=== PATIENT | male | born 1945 | race Caucasian/White ===

== ENCOUNTER 2016-05-26 14:07 | Inpatient (IN) | payer MEDICARE, BC ==
[~2016-05-26] VITALS: Ht 190.5 cm; Wt 84.9 kg
[~2016-05-26 14:07] MED LIST: LACTATED RINGER'S 1000 ML INJ 1,000 ML IV ONE; ONDANSETRON HCL 4 MG/2 ML VIAL IV PUSH ONE; OXYC-360 PO; PROPOFOL 200 MG/20 ML AMP IV ONE; SODIUM CHLOR 0.9% 1000 ML INJ 1,000 ML IV ONE; SODIUM CHLOR 0.9% 250 ML INJ 250 ML IV ONE; Z.0.NO CURRENT MEDS
[2016-05-26 14:08] VITALS: BP 174/97; PULSE 74; RESP 18; TEMP 98.1; O2SAT 97
--- NOTE | 2016-05-26 15:45 | PD ---
HPI Chief Complaint: GI Complaint Time Seen by Provider: 15:40 Travel History International Travel<30 days: No Contact w/Intl Traveler<30days: No Traveled to known affect area: No History of Present Illness HPI Patient is a 71-year-old male presenting to emergency room for evaluation of 3 days of nausea and vomiting. Patient states his symptoms started Thursday night, he was at a restaurant with his had not yet been served their food when he started to have abdominal pain and then felt nauseated. Patient was unable to eat his dinner, he went to the car to wait for his while she paid until. He states that he thought he got into the passenger side door when he woke up in the bushes. When he woke he had numbness in his left hand but denies any weakness. He states the nausea and vomiting/dry heaves continued through Thursday. He states he tried to eat croissants and pizza on Thursday but he vomited that up. The symptoms continued through Thursday. He has been sipping water and amor maryellen. He has had nothing to eat or drink today. He reports currently that he feels bloated like something needs to "move", whether it be gas, or burping, or bowel movement. He denies any fever, chills, chest pain, shortness of breath, headache now or when the symptoms started. Patient denies a significant past medical history, he is only on when necessary medication for acid reflux. PFSH Past Medical History GERD: Yes Past Surgical History Other Surgery: Yes (wrist) Social History Alcohol Use: No Tobacco Use: No Substance Use: No Allergies-Medications (Allergen,Severity, Reaction): Coded Allergies: Ciprofloxacin/Hydrocortisone (Verified Allergy, Severe, Nausea/Vomiting, ) Clindamycin (Verified Allergy, Severe, Anaphylaxis, 05/26/16) Penicillin (Verified Allergy, Severe, Rash, 05/26/16) Reported Meds & Prescriptions Reported Meds & Active Scripts Active Reported Omeprazole 20 Mg Cap 20 Mg PO DAILY PRN Review of Systems Except as stated in HPI: all other systems reviewed are Neg General / Constitutional: No: Fever, Chills HENT: No: Lightheadedness Cardiovascular: No: Chest Pain or Discomfort Respiratory: No: Shortness of Breath Gastrointestinal: Positive: Nausea, Vomiting, Abdominal Pain, Changes in Bowel Habits Genitourinary: No: Dysuria Musculoskeletal: No: Myalgias Neurologic: Positive: Syncope Physical Exam Narrative GENERAL: Well-developed, well-nourished, alert male. Resting comfortably in no acute distress. SKIN: Warm and dry. HEAD: Atraumatic. Normocephalic. EYES: Pupils equal and round. No scleral icterus. No injection or drainage. ENT: No nasal bleeding or discharge. Mucous membranes pink and moist. NECK: Trachea midline. No JVD. CARDIOVASCULAR: Regular rate and rhythm. No murmur appreciated. RESPIRATORY: No accessory muscle use. Clear to auscultation. Breath sounds equal bilaterally. GASTROINTESTINAL: Abdomen soft, mild tender to palpation epigastric region., nondistended. Hepatic and splenic margins not palpable. Positive bowel sounds. MUSCULOSKELETAL: No obvious deformities. No clubbing. No cyanosis. No edema. NEUROLOGICAL: Awake and alert. No obvious cranial nerve deficits. Motor grossly within normal limits. Normal speech. PSYCHIATRIC: Appropriate mood and affect; insight and judgment normal. Data Data Last Documented VS Vital Signs Date Time Temp Pulse Resp B/P Pulse Ox O2 Delivery O2 Flow Rate FiO2 05/26/16 20:00 69 16 193/92 100 05/26/16 19:40 Room Air 05/26/16 14:08 98.1 Orders Complete Blood Count With Diff (05/26/16 15:27) Comprehensive Metabolic Panel (05/26/16 15:27) Urinalysis - C+S If Indicated (05/26/16 15:27) Lipase (05/26/16 15:27) Abdomen, Kub Only (05/26/16 15:27) Lactic Acid (05/26/16 15:27) Electrocardiogram (05/26/16 ) Ct Abd/Pel W Iv Contrast(Rout) (05/26/16 18:31) Iv Access Insert/Monitor (05/26/16 18:42) Ecg Monitoring (05/26/16 18:42) Oximetry (05/26/16 18:42) Morphine Inj (Morphine Inj) (05/26/16 18:45) Ondansetron Inj (Zofran Inj) (05/26/16 18:45) Sodium Chlor 0.9% 1000 Ml Inj (Ns 1000 M (05/26/16 18:42) Ckmb (Isoenzyme) Profile (05/26/16 18:45) Troponin I (05/26/16 18:45) Electrocardiogram (05/26/16 18:50) Sodium Chlor 0.9% 1000 Ml Inj (Ns 1000 M (05/26/16 19:00) CKMB (05/26/16 14:40) CKMB% (05/26/16 14:40) Chest, Single Ap (05/26/16 19:48) Iohexol 350 Inj (Omnipaque 350 Inj) (05/26/16 20:08) Bupivacaine-Epi Pf 0.5% Inj (Sensorcaine (05/26/16 21:58) Admit Order (Ed Use Only) (05/26/16 21:59) Labs Laboratory Tests Test 05/26/16 14:40 White Blood Count 8.4 TH/MM3 Red Blood Count 5.01 MIL/MM3 Hemoglobin 14.6 GM/DL Hematocrit 43.3 % Mean Corpuscular Volume 86.4 FL Mean Corpuscular Hemoglobin 29.2 PG Mean Corpuscular Hemoglobin 33.8 % Concent Red Cell Distribution Width 13.7 % Platelet Count 179 TH/MM3 Mean Platelet Volume 7.5 FL Neutrophils (%) (Auto) 74.1 % Lymphocytes (%) (Auto) 18.1 % Monocytes (%) (Auto) 6.5 % Eosinophils (%) (Auto) 1.0 % Basophils (%) (Auto) 0.3 % Neutrophils # (Auto) 6.2 TH/MM3 Lymphocytes # (Auto) 1.5 TH/MM3 Monocytes # (Auto) 0.5 TH/MM3 Eosinophils # (Auto) 0.1 TH/MM3 Basophils # (Auto) 0.0 TH/MM3 CBC Comment DIFF FINAL Differential Comment Urine Color YELLOW Urine Turbidity CLEAR Urine pH 6.0 Urine Specific [place] 1.025 Urine Protein 30 mg/dL Urine Glucose (UA) NEG mg/dL Urine Ketones NEG mg/dL Urine Occult Blood TRACE Urine Nitrite NEG Urine Bilirubin NEG Urine Urobilinogen LESS THAN 2.0 MG/DL Urine Leukocyte Esterase NEG Urine RBC 2 /hpf Urine WBC 1 /hpf Urine Squamous Epithelial <1 /hpf Cells Urine Mucus FEW /lpf Microscopic Urinalysis Comment CULT NOT INDICATED Sodium Level 141 MEQ/L Potassium Level 3.8 MEQ/L Chloride Level 101 MEQ/L Carbon Dioxide Level 31.5 MEQ/L Anion Gap 9 MEQ/L Blood Urea Nitrogen 20 MG/DL Creatinine 1.40 MG/DL Estimat Glomerular Filtration 50 ML/MIN Rate Random Glucose 105 MG/DL Lactic Acid Level 1.1 mmol/L Calcium Level 9.3 MG/DL Total Bilirubin 0.6 MG/DL Aspartate Amino Transf 18 U/L (AST/SGOT) Alanine Aminotransferase 27 U/L (ALT/SGPT) Alkaline Phosphatase 71 U/L Total Creatine Kinase 287 U/L Creatine Kinase MB 1.7 NG/ML Troponin I 0.09 NG/ML Total Protein 7.9 GM/DL Albumin 4.0 GM/DL Lipase 166 U/L MDM Medical Decision Making Medical Screen Exam Complete: Yes Emergency Medical Condition: Yes Interpretation(s) Vital Signs Date Time Temp Pulse Resp B/P Pulse Ox O2 Delivery O2 Flow Rate FiO2 05/26/16 14:08 98.1 74 18 174/97 97 Room Air Differential Diagnosis Gastroenteritis versus foodborne illness versus obstruction versus cardiac arrhythmia versus electrolyte abnormality versus other Narrative Course Patient is a 71-year-old male presenting to emergency evaluation of nausea and vomiting. Patient is a syncopal episode on Thursday evening. He denies any significant past history. He has not vomited today but he has not eaten anything either. Labs and imaging ordered and pending. Workup initiated in triage, care patient will be transferred to provider when a medical bed is available. Katie Hale May 26, 2016 15:45
[2016-05-26 16:11] LABS: AUTOMATED NEUTROPHIL # 6.2 TH/MM3 (1.8-7.7); BASOPHIL % 0.3 % (0.0-2.0); EOSINOPHIL # 0.1 TH/MM3 (0-0.4); HEMATOCRIT 43.3 % (39.0-51.0); HEMO FLAGS DIFF FINAL; LYMPH % 18.1 % (9.0-44.0); LYMPHOCYTE # 1.5 TH/MM3 (1.0-4.8); MEAN CELL VOLUME 86.4 FL (80.0-100.0); MEAN CORPUSCULAR HEMOGLOBIN 29.2 PG (27.0-34.0); MEAN CORPUSCULAR HGB CONC 33.8 % (32.0-36.0); MONO % 6.5 % (0.0-8.0); NEUT % 74.1 % (16.0-70.0); PLATELET COUNT 179 TH/MM3 (150-450); RED BLOOD COUNT 5.01 MIL/MM3 (4.50-5.90); RED CELL DISTRIBUTION WIDTH 13.7 % (11.6-17.2); WHITE BLOOD COUNT 8.4 TH/MM3 (4.0-11.0)
[2016-05-26 16:15] LABS: BLOOD, URINE TRACE (NEG); COMMENT (UR) CULT NOT INDICATED; CULTURE IF INDICATED CULT NOT INDICATED; GLUCOSE,URINE NEG (NEG); KETONE, URINE NEG (NEG); MUCUS URINE FEW /lpf (OCC); NITRITE,URINE NEG (NEG); SQUAMOUS EPITHELIAL CELL URINE <1 /hpf (0-5); URINE COLOR YELLOW (YELLW/STRAW)
[2016-05-26 16:34] LABS: ALT (GPT) 27 U/L (12-78); ANION GAP 9 MEQ/L (5-15); AST (GOT) 18 U/L (15-37); BICARBONATE 31.5 MEQ/L (21.0-32.0); BLOOD UREA NITROGEN 20 MG/DL (7-18); CHLORIDE 101 MEQ/L (98-107); GLOMERULAR FILTRATION RATE 50 ML/MIN (>89); POTASSIUM 3.8 MEQ/L (3.5-5.1); SODIUM (NA) 141 MEQ/L (136-145)
[2016-05-26 16:36] LABS: ALKALINE PHOSPHATASE 71 U/L (45-117); TOTAL BILIRUBIN ADULT 0.6 MG/DL (0.2-1.0)
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
[2016-05-26] MEDS ORDERED: SODIUM CHLOR 0.9% 1000 ML INJ 1,000 ML IV SCH (18:42)
[2016-05-26] MEDS ORDERED: ONDANSETRON HCL 4 MG/2 ML VIAL IVP ONE (18:45)
[2016-05-26] MEDS ORDERED: MORPHINE SULFATE 4 MG/ML INJ IV PUSH ONE (18:45)
[2016-05-26] MEDS ORDERED: OMEP20CA2 PO (18:52)
--- NOTE | 2016-05-26 18:56 | PD ---
Physical Exam Time Seen by Provider: 18:55 Narrative 71-year-old male with a history of GERD presents to the emergency department for evaluation of nausea and vomiting for 3 days with abdominal pain. Patient was seen by provider in triage initiated workup, please see her documentation. The patient states that Thursday afternoon he began to have left-sided abdominal pain. States that Thursday evening while out to dinner with his he began to feel nauseous and lightheaded as though he was going to pass out. States that he went out to the car to wait for her and he became diaphoretic, nauseous, lightheaded and passed out in the bushes next to his car for a few minutes. States since then he has had no further syncopal episodes or lightheadedness but he has had nausea, vomiting, bloating and abdominal pain since Thursday. He states his abdominal pain is mostly epigastric but is generalized. States that he has had smaller bowel movements over the past 2 days than he typically does, denies any blood or mucus. Denies fever, chills, chest pain, shortness of breath, difficulty breathing, dysuria. Denies any history of heart disease or [place]. Prior abdominal surgeries include inguinal hernia repair. PCP Dr. Lindsay. No other complaints. GENERAL: Well-nourished and well-developed pleasant patient in no acute distress who is nontoxic appearing. SKIN: Warm and dry. HEAD: Normocephalic and atraumatic. EYES: No injection, drainage, or hyphema noted. PERRLA. EOMI. ENT: No nasal drainage noted. Oropharynx is clear. NECK: Supple and the trachea is midline. CARDIOVASCULAR: Regular rate and rhythm. RESPIRATORY: Breath sounds are equal bilaterally with no accessory muscle use, wheezing, rhonchi, or crackles. GASTROINTESTINAL: Generalized tenderness to palpation of abdomen worse in the epigastric, periumbilical and left upper quadrant with guarding. Negative Davenport sign. Negative McBurney's point. Abdomen is soft and nondistended. MUSCULOSKELETAL: No obvious deformities, swelling, cyanosis, or ecchymosis is present throughout the upper and lower extremities. Patient has full range of motion without any signs of neurovascular compromise. NEUROLOGICAL: Awake, alert, and oriented. Normal speech and gait. Cranial nerves are grossly intact. Data Data Last Documented VS Vital Signs Date Time Temp Pulse Resp B/P Pulse Ox O2 Delivery O2 Flow Rate FiO2 3/6/17 20:00 69 16 193/92 100 05/26/16 19:40 Room Air 05/26/16 14:08 98.1 Orders Complete Blood Count With Diff (05/26/16 15:27) Comprehensive Metabolic Panel (05/26/16 15:27) Urinalysis - C+S If Indicated (05/26/16 15:27) Lipase (05/26/16 15:27) Abdomen, Kub Only (05/26/16 15:27) Lactic Acid (05/26/16 15:27) Electrocardiogram (05/26/16 ) Ct Abd/Pel W Iv Contrast(Rout) (05/26/16 18:31) Iv Access Insert/Monitor (05/26/16 18:42) Ecg Monitoring (05/26/16 18:42) Oximetry (05/26/16 18:42) Morphine Inj (Morphine Inj) (05/26/16 18:45) Ondansetron Inj (Zofran Inj) (05/26/16 18:45) Sodium Chlor 0.9% 1000 Ml Inj (Ns 1000 M (05/26/16 18:42) Ckmb (Isoenzyme) Profile (05/26/16 18:45) Troponin I (05/26/16 18:45) Electrocardiogram (05/26/16 18:50) Sodium Chlor 0.9% 1000 Ml Inj (Ns 1000 M (05/26/16 19:00) CKMB (05/26/16 14:40) CKMB% (05/26/16 14:40) Chest, Single Ap (05/26/16 19:48) Iohexol 350 Inj (Omnipaque 350 Inj) (05/26/16 20:08) Bupivacaine-Epi Pf 0.5% Inj (Sensorcaine (05/26/16 21:58) Admit Order (Ed Use Only) (05/26/16 21:59) Labs Laboratory Tests Test 05/26/16 14:40 White Blood Count 8.4 TH/MM3 Red Blood Count 5.01 MIL/MM3 Hemoglobin 14.6 GM/DL Hematocrit 43.3 % Mean Corpuscular Volume 86.4 FL Mean Corpuscular Hemoglobin 29.2 PG Mean Corpuscular Hemoglobin 33.8 % Concent Red Cell Distribution Width 13.7 % Platelet Count 179 TH/MM3 Mean Platelet Volume 7.5 FL Neutrophils (%) (Auto) 74.1 % Lymphocytes (%) (Auto) 18.1 % Monocytes (%) (Auto) 6.5 % Eosinophils (%) (Auto) 1.0 % Basophils (%) (Auto) 0.3 % Neutrophils # (Auto) 6.2 TH/MM3 Lymphocytes # (Auto) 1.5 TH/MM3 Monocytes # (Auto) 0.5 TH/MM3 Eosinophils # (Auto) 0.1 TH/MM3 Basophils # (Auto) 0.0 TH/MM3 CBC Comment DIFF FINAL Differential Comment Urine Color YELLOW Urine Turbidity CLEAR Urine pH 6.0 Urine Specific [place] 1.025 Urine Protein 30 mg/dL Urine Glucose (UA) NEG mg/dL Urine Ketones NEG mg/dL Urine Occult Blood TRACE Urine Nitrite NEG Urine Bilirubin NEG Urine Urobilinogen LESS THAN 2.0 MG/DL Urine Leukocyte Esterase NEG Urine RBC 2 /hpf Urine WBC 1 /hpf Urine Squamous Epithelial <1 /hpf Cells Urine Mucus FEW /lpf Microscopic Urinalysis Comment CULT NOT INDICATED Sodium Level 141 MEQ/L Potassium Level 3.8 MEQ/L Chloride Level 101 MEQ/L Carbon Dioxide Level 31.5 MEQ/L Anion Gap 9 MEQ/L Blood Urea Nitrogen 20 MG/DL Creatinine 1.40 MG/DL Estimat Glomerular Filtration 50 ML/MIN Rate Random Glucose 105 MG/DL Lactic Acid Level 1.1 mmol/L Calcium Level 9.3 MG/DL Total Bilirubin 0.6 MG/DL Aspartate Amino Transf 18 U/L (AST/SGOT) Alanine Aminotransferase 27 U/L (ALT/SGPT) Alkaline Phosphatase 71 U/L Total Creatine Kinase 287 U/L Creatine Kinase MB 1.7 NG/ML Troponin I 0.09 NG/ML Total Protein 7.9 GM/DL Albumin 4.0 GM/DL Lipase 166 U/L [facility] Supervised Visit with SANJANA: No Differential Diagnosis Gastroenteritis versus colitis versus diverticulitis versus pancreatitis versus ACS versus anginal equivalent Narrative Course 71-year-old male presents to the emergency department for evaluation of abdominal pain, nausea and vomiting for 3 days. He also had a syncopal episode 3 days ago. Patient is afebrile, vital signs are stable. He has generalized abdominal tenderness to palpation. Labs were done per protocol by triage provider. EKG shows some nonspecific lateral ST changes. CBC is unremarkable. CMP shows elevated creatinine of 1.4, BUN 20, GFR 50. This seems to be the patient's baseline. Troponin is elevated at 0.09. Urinalysis shows 30 protein, trace occult blood, few mucus. Abdominal x-ray shows dilated bowel in the central abdomen to left upper quadrant that may represent a dilated cecum, CT imaging is recommended. CT of the abdomen and pelvis with IV contrast shows cecal volvulus with colonic obstruction. Patient will be admitted to general surgery with consultation to hospital medicine. I did discuss with Dr. Rm the patient has an elevated troponin and abnormal EKG. He is aware and made the [facility] I discussed the case with my attending physician Dr. Kolb who is aware of the patients history, physical examination findings, and treatment plan. Physician Communication Physician Communication I spoke with Dr. Rm general surgeon who states he will come evaluate the patient in the ED. Diagnosis Primary Impression: Cecal volvulus Additional Impressions: Elevated troponin Episode of syncope Qualified Code: R55 - Syncope, unspecified syncope type Admitting Information Admitting Physician Requests: Admit Catherine Du May 26, 2016 18:56
[2016-05-26] MEDS ORDERED: SODIUM CHLOR 0.9% 1000 ML INJ 1,000 ML IV ONE (19:00)
[2016-05-26 19:17] LABS: CREATINE KINASE 287 U/L (39-308)
[2016-05-26 19:30] LABS: CKMB 1.7 NG/ML (0.5-3.6)
[2016-05-26 19:40] VITALS: O2SAT 100
[2016-05-26 20:00] VITALS: BP 193/92; PULSE 69; RESP 16; O2SAT 100
[2016-05-26] MEDS ORDERED: IOHEXOL 350 MG/ML 10 ML VIAL (for RAD DIAG) IV ONE (20:08)
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
--- NOTE | 2016-05-26 21:02 | RADRPT ---
EXAM DATE/TIME: 05/26/2016 20:40 [facility] COMPARISON: CHEST PA & LAT, March 27, 2010, 13:56. INDICATIONS : Vomiting for the past few days. MEDICAL HISTORY : Hypertension. SURGICAL HISTORY : None. ENCOUNTER: Initial ACUITY: 3 days PAIN SCORE: 0/10 LOCATION: Bilateral chest FINDINGS: A single view of the chest demonstrates the lungs to be symmetrically aerated without evidence of mas s, infiltrate or effusion. The cardiomediastinal contours are unremarkable. Osseous structures are intact. CONCLUSION: No evidence of acute cardiopulmonary disease. Tee Durand MD on May 26, 2016 at 21:00 Board Certified Radiologist. This report was verified electronically.
[2016-05-26] MEDS ORDERED: BUPIVACAINE/EPINEPHRINE 0.5% PF 30 ML VIAL ONE (21:58)
[2016-05-26] MEDS ORDERED: MIDAZOLAM HCL 2 MG/2 ML VIAL ONE (22:33)
[2016-05-26] MEDS ORDERED: SUGAMMADEX SODIUM 200 MG/2 ML VIAL IV PUSH ONE ×2 (22:41)
[2016-05-26] MEDS ORDERED: metroNIDAZOLE 500 MG INJ 100 ML IV ONE (22:44)
[2016-05-26] MEDS ORDERED: BUPIVACAINE/EPINEPHRINE 0.25% PF 30 ML VIAL INFIL ONE (22:49)
[2016-05-26] MEDS ORDERED: ACETAMINOPHEN 1000 MG/100 ML VIAL IV ONE (22:52)
[2016-05-27] VITALS (9 sets, daily range): BP systolic 160–196; BP diastolic 66–95; PULSE 56–69; RESP 17–20; TEMP 96–98.5; O2SAT 95–99
[2016-05-27] MEDS ORDERED: D5-NS + KCL 20 MEQ INJ 1,000 ML IV SCH (00:11)
--- NOTE | 2016-05-27 00:11 | HHI.PR ---
Immediate Post Op Note Procedure Date: May 27, 2016 Pre Op Diagnosis: (1) Cecal volvulus Post Op Diagnosis: (1) Cecal volvulus Surgeon: German Rm Software Educator(s): none Procedure: Exploratory Laparotomy Right Hemicolectomy Findings: cecal volvulus, cecum and right colon with severe distension and ischemia, no perforation Complications: none Specimen(s) removed: right colon Estimated blood loss: 50ml Anesthesia: General, Local Drains: None IVF Patient to: PACU Patient Condition: Good German Rm MD May 27, 2016 00:11
[2016-05-27] MEDS ORDERED: Post-op Orders (for Pharmacy) MISC XX ONE (00:15)
[2016-05-27] MEDS ORDERED: DEXTROSE 50% IN WATER 50 ML VIAL(D50) IV PUSH PRN (00:15)
[2016-05-27] MEDS ORDERED: SODIUM CHLORIDE 0.9% FLUSH 5 ML FLUSH IVF PRN (00:15)
[2016-05-27] MEDS ORDERED: ALVIMOPAN 12 MG CAPSULE PO ONE (00:15)
[2016-05-27] MEDS ORDERED: BENZOCAINE 20% ORAL SPR 60 ML CAN MT PRN (00:15)
[2016-05-27] MEDS ORDERED: diphenhydrAMINE HCL 50 MG/ML VIAL IV PRN (00:15)
[2016-05-27] MEDS ORDERED: NALOXONE HCL 0.4 MG/ML AMP IV PRN ×2 (00:15)
[2016-05-27] MEDS ORDERED: GLUCAGON 1 MG/ML VIAL OTHER PRN (00:15)
[2016-05-27] MEDS ORDERED: ENALAPRILAT 1.25 MG/ML VIAL ONE (00:30)
[2016-05-27] MEDS ORDERED: MEPERIDINE HCL 25 MG/ML VIAL ONE (00:31)
[2016-05-27] MEDS ORDERED: *morphine SULFATE 8 MG/ML PERIprocedure ONLY ONE (00:40)
[2016-05-27] MEDS ORDERED: fentaNYL CITRATE 250 MCG/5 ML AMP ONE (00:54)
[2016-05-27] MEDS ORDERED: *ENALAPRILAT 1.25 MG/ML VIAL PERIprocedural Use ONLY ONE (01:01)
[2016-05-27] MEDS: PANTOPRAZOLE SODIUM 40 MG VIAL IV SCH ×2 (01:25→23:32)
[2016-05-27] MEDS ORDERED: INSULIN HUMAN REGULAR 1,000 UNITS/10 ML VIAL ONE (01:32)
[2016-05-27] MEDS: MORPHINE SULFATE 30 MG/30 ML PCA IV SCH ×2 (02:11→21:39)
[2016-05-27] MEDS ORDERED: metroNIDAZOLE 500 MG INJ 100 ML IV SCH (03:00)
[2016-05-27] MEDS: ACETAMINOPHEN 1000 MG/100 ML VIAL IV SCH ×4 (04:41→21:53)
[2016-05-27] MEDS: INSULIN NovoLIN REGULAR SUPPLEMENTAL SCALE SQ SCH ×4 (05:31→21:56)
[2016-05-27] MEDS: metroNIDAZOLE 500 MG INJ 100 ML IV SCH ×3 (05:48→23:19)
[2016-05-27] MEDS: PCA - TOTAL MG MORPHINE DELIVERED PER SHIFT SCH ×3 (05:49→22:00)
[2016-05-27 06:09] LABS: AUTOMATED NEUTROPHIL # 11.2 TH/MM3 (1.8-7.7); BASOPHIL % 0.1 % (0.0-2.0); HEMATOCRIT 38.1 % (39.0-51.0); HEMO FLAGS DIFF FINAL; LYMPH % 2.5 % (9.0-44.0); LYMPHOCYTE # 0.3 TH/MM3 (1.0-4.8); MEAN CELL VOLUME 85.5 FL (80.0-100.0); MEAN CORPUSCULAR HEMOGLOBIN 29.4 PG (27.0-34.0); MEAN CORPUSCULAR HGB CONC 34.3 % (32.0-36.0); MONO % 4.8 % (0.0-8.0); NEUT % 92.6 % (16.0-70.0); PLATELET COUNT 157 TH/MM3 (150-450); RED BLOOD COUNT 4.45 MIL/MM3 (4.50-5.90); RED CELL DISTRIBUTION WIDTH 13.7 % (11.6-17.2); WHITE BLOOD COUNT 12.1 TH/MM3 (4.0-11.0)
[2016-05-27 06:45] LABS: BICARBONATE 26.8 MEQ/L (21.0-32.0); POTASSIUM 4.2 MEQ/L (3.5-5.1)
--- NOTE | 2016-05-27 08:31 | MH ---
cc: JOSEHAYDENBESSY FERRO DATE OF ADMISSION: 05/26/2016 CHIEF COMPLAINT Cecal volvulus. HISTORY OF PRESENT ILLNESS The patient is a 71-year-old male who presented to [facility] with three days of increasing epigastric abdominal pain with nausea, vomiting and syncope. The patient states he was previously healthy, had no abdominal symptoms until he developed increasing bloating, abdominal pain, anorexia, nausea, and vomiting since Thursday. The patient has continued to pass some gas and has had bowel movements, but decreased amount since then. The patient continued to have worsening pain, felt like a pressure that needed to be relieved with either vomiting or passing gas. The patient did present to the emergency department today on 05/26/2016. He underwent a CT scan for abdominal pain which showed a cecal volvulus with a significantly distended right colon and cecum. General surgery was consulted for evaluation. REVIEW OF SYSTEMS A 12-point review of systems was conducted with the patient and is negative except for the pertinent positives mentioned above in the history of present illness. PAST MEDICAL HISTORY None. PAST SURGICAL HISTORY Wrist surgery. No abdominal surgeries. ALLERGIES 1. CIPROFLOXACIN. 2. HYDROCORTISONE. 3. CLINDAMYCIN. 4. PENICILLIN. MEDICATIONS None. SOCIAL HISTORY The patient denies alcohol, tobacco or illicit drug use. FAMILY HISTORY Noncontributory. PHYSICAL EXAMINATION VITAL SIGNS: Blood pressure 174/97, heart rate 74 with temperature 98.1 degrees Fahrenheit. GENERAL: The patient is a thin well-developed, well-nourished physically fit male in no acute distress. He does not appear to be acute or chronically ill. HEENT: Head is normocephalic, atraumatic. Pupils are round and reactive to light. Sclera is anicteric. Mucous membranes are moist. NECK: Supple. No JVD. LUNGS: Clear to auscultation bilaterally. Nonlabored breathing pattern. HEART: Regular rate and rhythm. No murmurs. ABDOMEN: Soft, mildly distended, tympanic. He has no rebound tenderness or guarding. He has hypoactive bowel sounds. No ascites. No organomegaly. BACK: No CVA tenderness. EXTREMITIES: No clubbing, cyanosis or edema. NEUROLOGIC: The patient is alert and oriented x3. Cranial nerves II through XII are grossly intact. Nonfocal peripheral exam. ASSESSMENT AND PLAN The patient is a 71-year-old male with previous abdominal pain and CT scan with cecal volvulus and clinically with partial bowel obstruction. I discussed the options with the patient including nonoperative management with colonoscopy versus cecopexy versus open cecectomy versus hemicolectomy for treatment. The patient agrees to undergo exploratory laparotomy and possible bowel resection for a cecal volvulus. The risks, benefits and alternatives were again discussed with the patient and his and all questions were answered to their satisfaction. I will maintain the patient n.p.o., continue IV fluids and analgesics. Will bring the patient to the operating room for exploration and treatment of the cecal volvulus based on the operating room availability. MD DAHLIA TorresG/SEJAL /12:19 AM /8:22 AM
[2016-05-27] MEDS: SODIUM CHLORIDE 0.9% FLUSH 5 ML FLUSH IVF SCH ×2 (09:00→21:51)
[2016-05-27] MEDS: ONDANSETRON HCL 4 MG/2 ML VIAL IV PRN (09:22)
[2016-05-27] MEDS: ALVIMOPAN 12 MG CAPSULE PO SCH ×2 (09:22→21:50)
[2016-05-27] MEDS ORDERED: ENALAPRILAT 1.25 MG/ML VIAL IV PUSH PRN (11:15)
--- NOTE | 2016-05-27 12:02 | EKG ---
Date Performed: 05/26/2016 Time Performed: 19:27:50 PTAGE: 71 years EKG: Sinus rhythm WITH OCCASIONAL SUPRAVENTRICULAR PREMATURE COMPLEXES INFERIOR AND LATERAL ST/T CHANGES, CONSIDER ISC HEMIA ABNORMAL ECG PREVIOUS TRACING : 05/26/2016 15.57 No change from previous tracing noted. DOCTOR: Kris Traore Interpretating Date/Time 05/27/2016 12:02:03
--- NOTE | 2016-05-27 12:13 | HHI.PR ---
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 Objective Vitals/I&O Vital Signs Date Time Temp Pulse Resp B/P Pulse Ox O2 Delivery O2 Flow Rate FiO2 05/27/16 12:06 97 Nasal Cannula 2.00 05/27/16 08:00 96.0 56 17 164/81 Labs Laboratory Tests Test 05/26/16 05/27/16 14:40 05:50 White Blood Count 8.4 12.1 Red Blood Count 5.01 4.45 Hemoglobin 14.6 13.1 Hematocrit 43.3 38.1 Mean Corpuscular Volume 86.4 85.5 Mean Corpuscular Hemoglobin 29.2 29.4 Mean Corpuscular Hemoglobin 33.8 34.3 Concent Red Cell Distribution Width 13.7 13.7 Platelet Count 179 157 Mean Platelet Volume 7.5 7.5 Neutrophils (%) (Auto) 74.1 92.6 Lymphocytes (%) (Auto) 18.1 2.5 Monocytes (%) (Auto) 6.5 4.8 Eosinophils (%) (Auto) 1.0 0.0 Basophils (%) (Auto) 0.3 0.1 Neutrophils # (Auto) 6.2 11.2 Lymphocytes # (Auto) 1.5 0.3 Monocytes # (Auto) 0.5 0.6 Eosinophils # (Auto) 0.1 0.0 Basophils # (Auto) 0.0 0.0 CBC Comment DIFF FINAL DIFF FINAL Differential Comment Urine Color YELLOW Urine Turbidity CLEAR Urine pH 6.0 Urine Specific [place] 1.025 Urine Protein 30 Urine Glucose (UA) NEG Urine Ketones NEG Urine Occult Blood TRACE Urine Nitrite NEG Urine Bilirubin NEG Urine Urobilinogen LESS THAN 2.0 Urine Leukocyte Esterase NEG Urine RBC 2 Urine WBC 1 Urine Squamous Epithelial <1 Cells Urine Mucus FEW Microscopic Urinalysis Comment CULT NOT INDICATED Sodium Level 141 140 Potassium Level 3.8 4.2 Chloride Level 101 104 Carbon Dioxide Level 31.5 26.8 Anion Gap 9 9 Blood Urea Nitrogen 20 16 Creatinine 1.40 1.10 Estimat Glomerular Filtration 50 66 Rate Random Glucose 105 138 Lactic Acid Level 1.1 Calcium Level 9.3 8.1 Total Bilirubin 0.6 Aspartate Amino Transf 18 (AST/SGOT) Alanine Aminotransferase 27 (ALT/SGPT) Alkaline Phosphatase 71 Total Creatine Kinase 287 Creatine Kinase MB 1.7 Troponin I 0.09 Total Protein 7.9 Albumin 4.0 Lipase 166 Cardiovascular: Regular Lungs: Clear Abdomen: Other (midline incision with dressing; tender to palpation around incision site; mildly distended ) Extremities: No edema A/P Assessment and Plan 71 year old male POD0 exploratory lap; RIGHT hemicolectomy for cecal volulus -NPO -Change fluids over to D5NS at 125 cc/hr -OOB and mobilize as tolerated today -Appreciate [facility] consult for medical management -GIOVANNY Welch at bedside Xin Blount May 27, 2016 12:13
[2016-05-27] MEDS ORDERED: DEXT 5%-NACL 0.9% 1000 ML INJ 1,000 ML IV SCH (13:00)
[2016-05-27] MEDS ORDERED: SODIUM CHLOR 0.9% 1000 ML INJ 1,000 ML IV SCH (13:00)
--- NOTE | 2016-05-27 15:33 | EKG ---
Date Performed: 05/26/2016 Time Performed: 15:57:28 PTAGE: 71 years EKG: Sinus rhythm WITH FREQUENT SUPRAVENTRICULAR PREMATURE COMPLEXES NONSPECIFIC ST & T-WAVE ABNORMALITY ABNORMAL ECG PREVIOUS TRACING : 03/27/2010 14.34 Compared to previous tracing, nonspecific ST/T changes and PACs are now present. DOCTOR: Kris Traore Interpretating Date/Time 05/27/2016 15:32:33
[2016-05-27] MEDS: ENOXAPARIN SODIUM 40 MG/0.4 ML SYRINGE SQ SCH (21:50)
[2016-05-27] MEDS: cloNIDine HCL 0.1 MG TAB PO PRN (23:27)
--- NOTE | 2016-05-27 23:40 | PD.CONS ---
HPI Service [facility] Consult Requested By Primary Care Physician Arden Lindsay MD Diagnoses: History of Present Illness 71-year-old male with a history of GERD, hypertension, however not on medication , who presented with sharp left upper quadrant abdominal pain with nausea, found to have small bowel obstruction. Currently status post partial bowel resection. He denies any nausea currently. Denies any chest pain or shortness of breath. He says that he works out regularly, runs miles every day without any chest pain. He does report a history of abnormal EKG over many years. Review of Systems performed and negative except for HPI and past medical history. Past Family Social History Allergies: Coded Allergies: Ciprofloxacin/Hydrocortisone (Verified Allergy, Severe, Nausea/Vomiting, ) Clindamycin (Verified Allergy, Severe, Anaphylaxis, 05/26/16) Penicillin (Verified Allergy, Severe, Rash, 05/26/16) Past Medical History gerd Hypertension. Not on medication Past Surgical History Wrist surgery Neck cyst surgery Hernia surgery Left wrist fracture repair Reported Medications reviewed in electronic medical record, and confirmed with the patient. Family History Father with diabetes, kidney failure Mother with kidney failure. Social History Nonsmoker. Drinks on average 5 beers per week. Denies any illicit drugs. Retired traffic police officer. Lives with Physical Exam Vital Signs Vital Signs Date Time Temp Pulse Resp B/P Pulse Ox O2 Delivery O2 Flow Rate FiO2 05/27/16 21:39 18 05/27/16 20:00 98.5 56 20 196/95 99 05/27/16 16:00 97.0 63 17 161/75 98 05/27/16 15:56 97 Nasal Cannula 2.00 05/27/16 14:00 17 05/27/16 12:06 97 Nasal Cannula 2.00 05/27/16 12:00 98.2 69 17 170/79 97 05/27/16 08:00 96.0 56 17 164/81 97 05/27/16 05:49 18 05/27/16 05:11 18 05/27/16 04:26 96.2 62 17 164/74 95 05/27/16 02:13 96.5 60 17 160/66 97 05/27/16 02:11 12 05/27/16 01:45 97.8 62 15 158/86 98 Nasal Cannula 2 05/27/16 01:30 62 14 157/88 98 Nasal Cannula 2 05/27/16 01:15 56 12 151/87 98 Nasal Cannula 2 05/27/16 01:00 63 13 147/104 98 Nasal Cannula 2 05/27/16 00:45 66 14 175/84 96 Nasal Cannula 2 05/27/16 00:30 97.7 68 12 199/98 99 Simple Mask 10 05/27/16 00:21 99 Physical Exam GENERAL: patient sitting in chair. Appears comfortable. Alert and oriented 3. SKIN: Warm and dry. HEAD: Normocephalic. EYES: No scleral icterus. No injection or drainage. NECK: Supple, trachea midline. No JVD. CARDIOVASCULAR: Regular rate and rhythm without murmurs, gallops, or rubs. RESPIRATORY: Breath sounds equal bilaterally. No accessory muscle use. GASTROINTESTINAL: Abdomen soft. surgical incision dressed. Dressing clean and dry and intact. MUSCULOSKELETAL: No cyanosis, or edema. BACK: Nontender without obvious deformity. No CVA tenderness. Laboratory Laboratory Tests Test 05/27/16 05/27/16 05:50 19:00 White Blood Count 12.1 Red Blood Count 4.45 Hemoglobin 13.1 Hematocrit 38.1 Mean Corpuscular Volume 85.5 Mean Corpuscular Hemoglobin 29.4 Mean Corpuscular Hemoglobin 34.3 Concent Red Cell Distribution Width 13.7 Platelet Count 157 Mean Platelet Volume 7.5 Neutrophils (%) (Auto) 92.6 Lymphocytes (%) (Auto) 2.5 Monocytes (%) (Auto) 4.8 Eosinophils (%) (Auto) 0.0 Basophils (%) (Auto) 0.1 Neutrophils # (Auto) 11.2 Lymphocytes # (Auto) 0.3 Monocytes # (Auto) 0.6 Eosinophils # (Auto) 0.0 Basophils # (Auto) 0.0 CBC Comment DIFF FINAL Differential Comment Sodium Level 140 Potassium Level 4.2 Chloride Level 104 Carbon Dioxide Level 26.8 Anion Gap 9 Blood Urea Nitrogen 16 Creatinine 1.10 Estimat Glomerular Filtration 66 Rate Random Glucose 138 Calcium Level 8.1 Troponin I 0.17 Result Diagram: 05/27/16 0550 05/27/16 0550 Imaging Last Impressions Chest X-Ray 05/26/161947 Signed Impressions: Service Date/Time: Thursday, May 26, 2016 20:40 - CONCLUSION: No evidence of acute cardiopulmonary disease. Tee Durand MD Abdomen/Pelvis CT 05/26/16 1831 Signed Impressions: Service Date/Time: Thursday, May 26, 2016 19:56 - CONCLUSION: Cecal volvulus with colonic obstruction. Tee Durand MD Abdomen X-Ray 05/26/16 1527 Signed Impressions: Service Date/Time: Thursday, May 26, 2016 15:43 - CONCLUSION: Dilated bowel in the central abdomen to left upper quadrant that I believe may represent a dilated cecum. If it is the cecum it may represent a bascule or may be displaced. If the patient is having significant abdominal pain it would consider CT of the abdomen and pelvis with IV contrast for further evaluation. Tee Deng MD Assessment and Plan Assessment and Plan //Postop bowel resection for volvulus Postsurgical management as per history of service Pain management as per surgical service Await return of bowel function Hypertension. Chronic. Not on medication. Enalapril IV when necessary. GERD. Chronic. Continue PPI Elevated troponin 0.09. No chest pain. Likely patient has some left ventricular hypertrophy from working out for years. Primary team has consult to cardiology. Leukocytosis. Mild. No signs of infection. Patient is on antibiotics as per surgery. Prophylaxis. As per surgical service. Discussed Condition With patient, nurse, family at bedside. Ovi Goldberg MD May 27, 2016 23:40
[2016-05-28] VITALS (8 sets, daily range): BP systolic 148–175; BP diastolic 72–92; PULSE 58–72; RESP 17–20; TEMP 95.8–99.1; O2SAT 94–99
[2016-05-28] MEDS: PCA - TOTAL MG MORPHINE DELIVERED PER SHIFT SCH ×3 (06:00→22:00)
[2016-05-28] MEDS: INSULIN NovoLIN REGULAR SUPPLEMENTAL SCALE SQ SCH ×4 (06:17→21:00)
[2016-05-28] MEDS: MORPHINE SULFATE 30 MG/30 ML PCA IV SCH (06:38)
--- NOTE | 2016-05-28 07:01 | MP ---
cc: BESSY KAY DATE OF SURGERY 05/26/2016 PREOPERATIVE DIAGNOSIS Cecal volvulus POSTOPERATIVE DIAGNOSIS Cecal volvulus PROCEDURE 1. Exploratory laparotomy 2. Open right hemicolectomy ATTENDING SURGEON Bessy Kay MD SCOREKEEPER Staff ANESTHESIA General FINDINGS A cecal volvulus involving the distal ileum and the ascending colon to the level of the hepatic flexure with a very long ileocolic mesentery. There are some ischemic changes without gangrene or perforation. COMPLICATIONS None BLOOD LOSS About 50 cc INDICATIONS FOR PROCEDURE The patient is a 71-year-old male with three days of abdominal pain, nausea and vomiting who presented to the emergency department at [facility] and diagnosed with a cecal volvulus on a CT scan. PROCEDURE After informed consent was obtained, the patient was taken to the operating room, placed in a supine position and placed under general endotracheal anesthesia. The patient's abdomen was shaved, prepped and draped in a sterile fashion. Time-out was performed. The abdomen was opened with an upper midline incision with the 10 blade scalpel. Bovie electrocautery was used to dissect the subcutaneous tissue and open the midline fascia for the full length of the incision. The hand retractor was placed and the cecum was very large along with the majority of the right colon was ischemic appearing and with no gangrene and was essentially distended to almost 15 cm. This was delivered into the wound without difficulty. We devolvulized this and were able to delineate our anatomy. The majority of the cecum and the right colon of the hepatic flexure was dilated and had some ischemic changes and thick petechiae type hemorrhage. The transverse colon, descending and sigmoid colon on palpation and visualization were essentially normal. The small bowel was relatively decompressed. We then turned our attention towards resection and I felt resecting all this abnormal damaged and dilated colon up to the hepatic flexure was indicated so we have normal terminal ileum to normal transverse colon to promote good healing and outcome. We did mobilize the white line of Toldt along the remaining portion of the right colon, but was just right at the base of the hepatic flexure. This was the done easily and there was a medial exposure and sweep of the duodenum. We then were able to use a blue load on the open RENEE stapler and divide the distal ileum as well as the transverse colon proximal to the middle colic artery. This was used as a suture ligature 0-silk suture over a Elenita clamp to divide the ileocolic artery without difficulty. We used the LigaSure to take the remainder of the mesentery. The cecum was taken separately from the right colon just for technical feasibility as the cecum was so dilated it inhibited our ability to get good exposure for the remainder of her surgery. A specimen was sent as two separate specimens. Once we had to removed this and passed this off for permanent processing, we turned our attention towards reconstruction. The transverse colon and the terminal ileum was laid without tension adjacent to each other quite easily. A [id number] functional end-to-end anastomosis with the antimesenteric portion of both the transverse colon and the distal ileum with the blue load on a GI-75 stapler. The staple defect was closed with the GI-75 as well. We placed cross stitches with 3-0 silk interrupted sutures. We had excellent open anastomosis with no bleeding or signs of any ischemia. We then closed the mesenteric defect with a running 3-0 silk suture as well. The greater omentum was placed over this anastomosis. We then, at this point in time, ensured our mesentery laid flat and our bowel was in normal anatomic position. We irrigated out the abdomen with two liters of warm saline until all suctioning was clear. There was no evidence of any other intra-abdominal pathology or complication and we turned our attention towards closure. We closed the midline with a single #1 looped PDS suture. We closed the skin with rony and a sterile dressing was applied. The patient was discontinued from anesthesia and taken to the PACU in stable condition. The patient tolerated the procedure well with no apparent complications. All counts were correct and I was present and scrubbed for the entire procedure. MD GAYATHRI Torres/RHIANNA /12:24 AM /6:46 AM
[2016-05-28] MEDS: ALVIMOPAN 12 MG CAPSULE PO SCH ×2 (08:34→23:25)
[2016-05-28] MEDS: SODIUM CHLORIDE 0.9% FLUSH 5 ML FLUSH IVF SCH ×2 (08:38→23:24)
--- NOTE | 2016-05-28 12:46 | HHI.PR ---
Subjective Subjective Notes pain controlled, no NV, no flatus Objective Vitals/I&O Vital Signs Date Time Temp Pulse Resp B/P Pulse Ox O2 Delivery O2 Flow Rate FiO2 05/28/16 08:07 97 21 05/28/16 08:00 96.0 58 18 156/72 05/27/16 15:56 Nasal Cannula 2.00 Labs Laboratory Tests Test 05/27/16 19:00 Troponin I 0.17 Cardiovascular: Regular Lungs: Clear Abdomen: Non-distended, Post-op tenderness Extremities: No edema, Perfused A/P Assessment and Plan 71yo male with cecal volvulus, s/p right hemicolectomy, stable. - pain ok - oob - Dc kirkpatrick - clears - await bowel function German Rm MD May 28, 2016 12:46
[2016-05-28] MEDS: SODIUM CHLOR 0.9% 1000 ML INJ 1,000 ML IV SCH (12:55)
--- NOTE | 2016-05-28 14:29 | PD.CONS ---
HPI Service Cardiology Physicians Consult Requested By Reason for Consult elevated troponin and non specific ST-T changes on EKG Primary Care Physician Arden Lindsay MD History of Present Illness The patient is an active 71 year old male not known to our practice with a cardiac history of borderline hypertension. The patient presented to the hospital with abdominal pain. Work up revealed cecal volvulus on imaging. He underwent exploratory lap yesterday. A right hemicolectomy was completed. We were consulted to slightly elevated troponin and slight EKG changes. The patient is an active male who runs on the treadmill and lifts weights most days of the week. He denies recent decreased exercise tolerance, CP, SOB or palpitations. Today, on evaluation, he is sitting up in the chair. He denies CP or SOB. (Bridget Jacobo) Review of Systems Consitutional: DENIES: Fatigue, Fever, Chills, Weight gain, Weight loss Eyes: DENIES: Amaurosis Fugax, Change in vision HEENT: DENIES: Lightheadedness, Change in hearing Respiratory: DENIES: See HPI, Cough, Snoring, Shortness of breath, Wheezing, Sputum production Cardiovascular: DENIES: See HPI, Chest pain, Palpitations, Syncope, Tachycardia Gastrointestinal: DENIES: Nausea, Vomiting, Change in bowel habits, Reflux, Bloody stools, Melena Genitourinary: DENIES: Urinary incontinence, Difficulty voiding Integumentary: DENIES: Rash Neurologic: DENIES: Tingling or numbness, Memory problems, Poor Balance, Stroke symptoms Musculoskeletal: DENIES: Joint pain, Muscle pain, Limited range of motion, Back pain Psychiatric: DENIES: Anxiety, Depression, Sleep disturbances Hematologic: DENIES: Bruising tendencies, Bleeding tendencies Endocrine: DENIES: Weight gain, Weight loss, Thyroid disease (Bridget Jacobo ) Past Family Social History Allergies: Coded Allergies: Ciprofloxacin/Hydrocortisone (Verified Allergy, Severe, Nausea/Vomiting, ) Clindamycin (Verified Allergy, Severe, Anaphylaxis, 05/26/16) Penicillin (Verified Allergy, Severe, Rash, 05/26/16) Past Medical History GERD HTN Past Surgical History Wrist surgery Neck cyst surgery Hernia surgery Left wrist fracture repair Reported Medications Reported Meds & Active Scripts Active Reported Omeprazole 20 Mg Cap 20 Mg PO DAILY PRN Active Ordered Medications Current Medications Medications (Trade) Dose Ordered Sig/Geovany Route Start Time Stop Time Status Last Admin (NS Flush) 2 ml UNSCH PRN IVF 05/27/16 00:15 (NS Flush) 2 ml BID IVF 05/27/16 00:15 05/28/16 08:38 (Zofran Inj) 4 mg Q6H PRN IV 05/27/16 00:15 05/27/16 09:22 (Protonix Inj) 40 mg Q24H IV 05/27/16 00:15 05/27/16 23:32 (Benadryl Inj) 25 mg Q6H PRN IV 05/27/16 00:15 (Narcan Inj) 0.4 mg UNSCH PRN IV 05/27/16 00:15 (Lovenox Inj) 40 mg Q24H SQ 05/27/16 21:00 05/27/16 21:50 (Narcan Inj) 0.4 mg UNSCH PRN IV 05/27/16 00:15 (Morphine 1 Mg/ ml AUTO TIRE RECAPPER) 30 mg UNSCH IV 05/27/16 00:15 05/28/16 06:38 AUTO TIRE RECAPPER Dosage Infused (Pha) 1 Q8HR .XX 05/27/16 00:15 05/28/16 06:00 (D50w (Vial) Inj) 25 ml UNSCH PRN IV PUSH 05/27/16 00:15 (Glucagon Inj) 1 mg UNSCH PRN OTHER 05/27/16 00:15 (Entereg) 12 mg Q12HR PO 05/27/16 09:00 06/02/16 21:01 05/28/16 08:34 (Vasotec Inj) 1.25 mg Q6H PRN IV PUSH 05/27/16 11:15 Clonidine 0.1 mg 0.1 mg Q6H PRN PO 05/27/16 23:00 05/27/16 23:27 (NS 1000 ml Inj) 1,000 ml @ 50 mls/hr Q20H IV 05/28/16 12:38 05/28/16 12:55 Family History non contributory Social History non smoker 5 beers per week (Bridget Jacobo) Physical Exam Vital Signs Vital Signs Date Time Temp Pulse Resp B/P Pulse Ox O2 Delivery O2 Flow Rate FiO2 05/28/16 12:00 95.8 59 17 148/75 94 05/28/16 08:07 97 21 3/8/17 08:00 96.0 58 18 156/72 96 05/28/16 06:38 16 05/28/16 06:00 16 05/28/16 04:00 98.0 62 20 159/76 97 05/28/16 00:00 96.4 62 20 175/90 99 05/27/16 22:00 19 05/27/16 21:39 18 05/27/16 20:00 98.5 56 20 196/95 99 05/27/16 16:00 97.0 63 17 161/75 98 05/27/16 15:56 97 Nasal Cannula 2.00 Physical Exam GENERAL: fit male sitting up in the chair SKIN: Warm and dry. HEAD: Atraumatic. Normocephalic. EYES: Pupils equal and round. No scleral icterus. No injection or drainage. ENT: No nasal bleeding or discharge. Mucous membranes pink and moist. NECK: Trachea midline. No JVD. CARDIOVASCULAR: Regular rate and rhythm. Ectopic beats RESPIRATORY: No accessory muscle use. Clear to auscultation. Breath sounds equal bilaterally. GASTROINTESTINAL: Abdominal dressing C/D/I, tenderness to palpation MUSCULOSKELETAL: Extremities without clubbing, cyanosis, or edema. No obvious deformities. NEUROLOGICAL: Awake and alert. No obvious cranial nerve deficits. Motor grossly within normal limits. Five out of 5 muscle strength in the arms and legs. Normal speech. PSYCHIATRIC: Appropriate mood and affect; insight and judgment normal. Laboratory Laboratory Tests Test 05/27/16 19:00 Troponin I 0.17 (Bridget Jacobo) Result Diagram: 05/27/16 0550 05/27/16 0550 Imaging Last 72 hours Impressions Chest X-Ray 05/26/16 1948 Signed Impressions: Service Date/Time: Thursday, May 26, 2016 20:40 - CONCLUSION: No evidence of acute cardiopulmonary disease. Tee Durand MD Abdomen/Pelvis CT 05/26/16 1831 Signed Impressions: Service Date/Time: Thursday, May 26, 2016 19:56 - CONCLUSION: Cecal volvulus with colonic obstruction. Tee Durand MD Abdomen X-Ray 05/26/16 1527 Signed Impressions: Service Date/Time: Thursday, May 26, 2016 15:43 - CONCLUSION: Dilated bowel in the central abdomen to left upper quadrant that I believe may represent a dilated cecum. If it is the cecum it may represent a bascule or may be displaced. If the patient is having significant abdominal pain it would consider CT of the abdomen and pelvis with IV contrast for further evaluation. Tee Deng MD (Bridget Jacobo) Assessment and Plan Assessment and Plan ASSESSMENT Slight elevation of troponin 0.09-->0.17 and new T wave changes of inferolateral leads without cardiac symptoms Premature atrial contractions Borderline hypertension S/p right hemicolectomy PLAN: The patient is stable from a cardiac standpoint for discharge. We will follow up outpatient with an ETT. Patient seen and evaluated by Dr Colorado (Bridget Jacobo) Assessment and Plan No chest pain or sob will FU as o/p for ralph to r/o CAD (Hans Colorado MD) Bridget Jacobo May 28, 2016 14:29 Hans Colorado MD May 28, 2016 15:18
[2016-05-28 16:46] LABS: AUTOMATED NEUTROPHIL # 6.4 TH/MM3 (1.8-7.7); BASOPHIL % 0.2 % (0.0-2.0); EOSINOPHIL # 0.1 TH/MM3 (0-0.4); EOSINOPHIL % 1.3 % (0.0-4.0); HEMATOCRIT 37.2 % (39.0-51.0); HEMO FLAGS DIFF FINAL; LYMPH % 12.6 % (9.0-44.0); MEAN CELL VOLUME 86.8 FL (80.0-100.0); MEAN CORPUSCULAR HEMOGLOBIN 29.5 PG (27.0-34.0); MEAN CORPUSCULAR HGB CONC 33.9 % (32.0-36.0); MONO % 7.2 % (0.0-8.0); NEUT % 78.7 % (16.0-70.0); PLATELET COUNT 143 TH/MM3 (150-450); RED BLOOD COUNT 4.28 MIL/MM3 (4.50-5.90); WHITE BLOOD COUNT 8.1 TH/MM3 (4.0-11.0)
[2016-05-28 17:15] LABS: ALKALINE PHOSPHATASE 53 U/L (45-117); ALT (GPT) 42 U/L (12-78); ANION GAP 8 MEQ/L (5-15); AST (GOT) 45 U/L (15-37); BICARBONATE 29.5 MEQ/L (21.0-32.0); BLOOD UREA NITROGEN 19 MG/DL (7-18); CHLORIDE 102 MEQ/L (98-107); GLOMERULAR FILTRATION RATE 61 ML/MIN (>89); SODIUM (NA) 139 MEQ/L (136-145); TOTAL BILIRUBIN ADULT 0.6 MG/DL (0.2-1.0)
[2016-05-28] MEDS: ENOXAPARIN SODIUM 40 MG/0.4 ML SYRINGE SQ SCH (23:25)
[2016-05-28] MEDS: PANTOPRAZOLE SODIUM 40 MG VIAL IV SCH (23:25)
--- NOTE | 2016-05-28 23:58 | HHI.PR ---
Subjective Remarks patient seen today around 1 PM. Patient says he is doing well. Denies any chest pain or shortness of breath. Still no bowel movement. Objective Vital Signs Date Time Temp Pulse Resp B/P Pulse Ox O2 Delivery O2 Flow Rate FiO2 05/28/16 22:00 16 05/28/16 18:19 95 21 05/28/16 16:00 96.1 61 18 158/74 95 05/28/16 14:30 16 05/28/16 12:00 95.8 59 17 148/75 94 05/28/16 08:07 97 21 05/28/16 08:00 96.0 58 18 156/72 96 05/28/16 06:38 16 05/28/16 06:00 16 05/28/16 04:00 98.0 62 20 159/76 97 05/28/16 00:00 96.4 62 20 175/90 99 I/O 05/27/16 05/27/16 05/27/16 05/28/16 05/28/16 05/28/16 07:00 15:00 23:00 07:00 15:00 23:00 Intake Total 2150 ml 1320 ml 61 ml 489 ml 276 ml Output Total 1520 ml 500 ml 300 ml 350 ml 350 ml 200 ml Balance 630 ml 820 ml -239 ml 139 ml -350 ml 76 ml Intake Oral 0 ml 0 ml 0 ml IV Total 150 ml 1320 ml 61 ml 489 ml 276 ml Other 2000 ml Output Urine Total 1100 ml 500 ml 300 ml 350 ml 350 ml 200 ml Estimated Blood Loss 20 ml Other 400 ml # Bowel Movements 0 0 Result Diagram: 05/28/16 1624 05/28/16 1624 Objective Remarks GENERAL: patient sitting up in chair. Appears comfortable. Alert and oriented. SKIN: Warm and dry. HEAD: Normocephalic. EYES: No scleral icterus. No injection or drainage. NECK: Supple, trachea midline. No JVD. CARDIOVASCULAR: Regular rate and rhythm without murmurs, gallops, or rubs. RESPIRATORY: Breath sounds equal bilaterally. No accessory muscle use. GASTROINTESTINAL: abdominal dressing intact. Abdomen nontender, nondistended. MUSCULOSKELETAL: No cyanosis, or edema. BACK: Nontender without obvious deformity. No CVA tenderness. A/P Assessment and Plan //Postop bowel resection for volvulus Postsurgical management as per history of service Pain management as per surgical service Await return of bowel function Hypertension. Chronic. Not on medication. Blood pressure likely exacerbated by pain. Enalapril IV when necessary. GERD. Chronic. Continue PPI Elevated troponin 0.09. No chest pain. Likely patient has some left ventricular hypertrophy from working out for years, as well as high blood pressure. -Cardiology consulted. Will need outpatient follow-up with cardiology Leukocytosis. Mild. Resolved. Likely secondary to stress. No signs of infection. Prophylaxis. As per surgical service. Discharge Planning we will continue to follow Ovi Goldberg MD May 28, 2016 23:58
[2016-05-29] VITALS (7 sets, daily range): BP systolic 155–182; BP diastolic 73–95; PULSE 68–78; RESP 20; TEMP 96.3–98.8; O2SAT 95–98
[2016-05-29] MEDS: PCA - TOTAL MG MORPHINE DELIVERED PER SHIFT SCH ×3 (05:13→21:16)
[2016-05-29] MEDS: INSULIN NovoLIN REGULAR SUPPLEMENTAL SCALE SQ SCH ×4 (05:19→21:00)
[2016-05-29 05:53] LABS: AUTOMATED NEUTROPHIL # 6.7 TH/MM3 (1.8-7.7); BASOPHIL % 0.2 % (0.0-2.0); EOSINOPHIL # 0.1 TH/MM3 (0-0.4); EOSINOPHIL % 1.6 % (0.0-4.0); HEMATOCRIT 34.6 % (39.0-51.0); HEMO FLAGS DIFF FINAL; LYMPH % 10.4 % (9.0-44.0); LYMPHOCYTE # 0.9 TH/MM3 (1.0-4.8); MEAN CELL VOLUME 86.5 FL (80.0-100.0); MEAN CORPUSCULAR HGB CONC 33.5 % (32.0-36.0); MONO % 6.9 % (0.0-8.0); NEUT % 80.9 % (16.0-70.0); PLATELET COUNT 132 TH/MM3 (150-450); RED CELL DISTRIBUTION WIDTH 13.9 % (11.6-17.2); WHITE BLOOD COUNT 8.3 TH/MM3 (4.0-11.0)
[2016-05-29 06:13] LABS: BICARBONATE 28.5 MEQ/L (21.0-32.0)
[2016-05-29] MEDS: SODIUM CHLOR 0.9% 1000 ML INJ 1,000 ML IV SCH (08:13)
[2016-05-29] MEDS: ALVIMOPAN 12 MG CAPSULE PO SCH ×2 (08:13→21:13)
[2016-05-29] MEDS: SODIUM CHLORIDE 0.9% FLUSH 5 ML FLUSH IVF SCH ×2 (08:14→21:00)
[2016-05-29] MEDS ORDERED: LISINOPRIL 5 MG TAB PO ONE (09:15)
--- NOTE | 2016-05-29 12:30 | HHI.PR ---
Subjective Subjective Notes Up to chair at bedside Walked in hallway this morning; wants to try again later today Pain better today Objective Vitals/I&O Vital Signs Date Time Temp Pulse Resp B/P Pulse Ox O2 Delivery O2 Flow Rate FiO2 05/29/16 09:09 98.2 78 20 182/95 95 05/28/16 18:19 21 05/27/16 15:56 Nasal Cannula 2.00 Labs Laboratory Tests Test 05/28/16 05/29/16 16:24 05:25 White Blood Count 8.1 8.3 Red Blood Count 4.28 4.00 Hemoglobin 12.6 11.6 Hematocrit 37.2 34.6 Mean Corpuscular Volume 86.8 86.5 Mean Corpuscular Hemoglobin 29.5 29.0 Mean Corpuscular Hemoglobin 33.9 33.5 Concent Red Cell Distribution Width 14.0 13.9 Platelet Count 143 132 Mean Platelet Volume 7.8 7.6 Neutrophils (%) (Auto) 78.7 80.9 Lymphocytes (%) (Auto) 12.6 10.4 Monocytes (%) (Auto) 7.2 6.9 Eosinophils (%) (Auto) 1.3 1.6 Basophils (%) (Auto) 0.2 0.2 Neutrophils # (Auto) 6.4 6.7 Lymphocytes # (Auto) 1.0 0.9 Monocytes # (Auto) 0.6 0.6 Eosinophils # (Auto) 0.1 0.1 Basophils # (Auto) 0.0 0.0 CBC Comment DIFF FINAL DIFF FINAL Differential Comment Sodium Level 139 137 Potassium Level 4.0 4.0 Chloride Level 102 101 Carbon Dioxide Level 29.5 28.5 Anion Gap 8 8 Blood Urea Nitrogen 19 18 Creatinine 1.18 1.18 Estimat Glomerular Filtration 61 61 Rate Random Glucose 100 98 Calcium Level 8.4 8.0 Total Bilirubin 0.6 Aspartate Amino Transf 45 (AST/SGOT) Alanine Aminotransferase 42 (ALT/SGPT) Alkaline Phosphatase 53 Total Protein 6.1 Albumin 3.1 Cardiovascular: Regular Lungs: Clear Abdomen: Other (midline incision; mildly distended ) Extremities: No edema A/P Assessment and Plan 71 year old male POD2 exploratory lap; RIGHT hemicolectomy for cecal volulus -Clear liquids -IVF KVO -Continue POOL TECHNICIAN for pain as needed -OOB and mobilize today -Appreciate HEPAS consult for medical management -Cardiology consult---Follow up as outpatient -Discussed with at bedside Xin Blount May 29, 2016 12:30
[2016-05-29] MEDS: ENOXAPARIN SODIUM 40 MG/0.4 ML SYRINGE SQ SCH (21:13)
--- NOTE | 2016-05-29 22:40 | HHI.PR ---
Subjective Remarks patient seen today around 2 PM. Patient says he is feeling well and denies any chest pain or shortness of breath. He is not eating or drinking much. No bowel movement yet. Objective Vital Signs Date Time Temp Pulse Resp B/P Pulse Ox O2 Delivery O2 Flow Rate FiO2 05/29/16 21:16 16 05/29/16 19:52 96 21 05/29/16 16:07 96.3 70 20 176/89 98 05/29/16 12:52 98.4 72 20 155/73 97 05/29/16 09:09 98.2 78 20 182/95 95 05/29/16 05:13 16 05/29/16 05:11 98.4 68 20 160/80 97 05/29/16 00:00 98.8 70 20 159/84 95 I/O 05/28/16 05/28/16 05/28/16 05/29/16 05/29/16 05/29/16 07:00 15:00 23:00 07:00 15:00 23:00 Intake Total 489 ml 916 ml 674 ml 960 ml Output Total 350 ml 350 ml 600 ml 450 ml 950 ml Balance 139 ml -350 ml 316 ml 224 ml 10 ml Intake Oral 0 ml 640 ml 460 ml 960 ml IV Total 489 ml 276 ml 214 ml Output Urine Total 350 ml 350 ml 600 ml 450 ml 950 ml # Bowel Movements 0 0 0 Result Diagram: 05/29/1652405/29/16524 Objective Remarks GENERAL: patient sitting up in chair as before. Appears comfortable. Alert and oriented. SKIN: Warm and dry. HEAD: Normocephalic. EYES: No scleral icterus. No injection or drainage. NECK: Supple, trachea midline. No JVD. CARDIOVASCULAR: Regular rate and rhythm without murmurs, gallops, or rubs. RESPIRATORY: Breath sounds equal bilaterally. No accessory muscle use. GASTROINTESTINAL: abdominal dressing intact. Abdomen nontender, nondistended.no change. MUSCULOSKELETAL: No cyanosis, or edema. BACK: Nontender without obvious deformity. No CVA tenderness. A/P Assessment and Plan //Postop bowel resection for volvulus Postsurgical management as per history of service Pain management as per surgical service -poor by mouth intake. Have added D5 half-normal saline maintenance fluids. Await return of bowel function Hypertension. Chronic. Not on medication. Blood pressure likely exacerbated by pain. Enalapril IV when necessary. -05/29. blood pressure elevated.Will add low-dose lisinopril. Continue to monitor. GERD. Chronic. Continue PPI Elevated troponin 0.09. No chest pain. Likely patient has some left ventricular hypertrophy from working out for years, as well as high blood pressure. -Cardiology consulted. Will need outpatient follow-up with cardiology Leukocytosis. Mild. Resolved. Likely secondary to stress. No signs of infection. Prophylaxis. As per surgical service. Discharge Planning we will continue to follow Ovi Goldberg MD May 29, 2016 22:39
[2016-05-29] MEDS: PANTOPRAZOLE SODIUM 40 MG VIAL IV SCH (23:44)
[2016-05-29] MEDS: D5-1/2 NS + KCL 20 MEQ INJ 1,000 ML IV SCH (23:44)
[2016-05-30] VITALS (7 sets, daily range): BP systolic 146–189; BP diastolic 48–95; PULSE 64–75; RESP 16–20; TEMP 97.4–98.6; O2SAT 94–97
[2016-05-30] MEDS: PCA - TOTAL MG MORPHINE DELIVERED PER SHIFT SCH ×3 (05:36→19:53)
[2016-05-30] MEDS: INSULIN NovoLIN REGULAR SUPPLEMENTAL SCALE SQ SCH ×4 (05:36→21:58)
[2016-05-30 06:03] LABS: BICARBONATE 31.2 MEQ/L (21.0-32.0); POTASSIUM 3.9 MEQ/L (3.5-5.1)
[2016-05-30] MEDS: ALVIMOPAN 12 MG CAPSULE PO SCH ×2 (07:59→19:52)
[2016-05-30] MEDS: LISINOPRIL 5 MG TAB PO SCH (08:00)
[2016-05-30] MEDS: D5-1/2 NS + KCL 20 MEQ INJ 1,000 ML IV SCH ×2 (08:01→19:54)
[2016-05-30] MEDS: SODIUM CHLORIDE 0.9% FLUSH 5 ML FLUSH IVF SCH ×2 (08:06→19:54)
[2016-05-30] MEDS: ONDANSETRON HCL 4 MG/2 ML VIAL IV PRN (09:39)
[2016-05-30] MEDS: METOCLOPRAMIDE HCL 10 MG/2 ML VIAL IV PUSH SCH ×2 (12:36→19:53)
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
--- NOTE | 2016-05-30 15:42 | HHI.PR ---
Subjective Subjective Notes 1100: Resting in bed; uncomfortable 1540: Passed gas; up to chair Objective Vitals/I&O Vital Signs Date Time Temp Pulse Resp B/P Pulse Ox O2 Delivery O2 Flow Rate FiO2 05/30/16 12:52 97.6 64 18 177/89 97 05/29/16 19:52 21 05/27/16 15:56 Nasal Cannula 2.00 Labs Laboratory Tests Test 05/30/16 04:04 Sodium Level 138 Potassium Level 3.9 Chloride Level 101 Carbon Dioxide Level 31.2 Anion Gap 6 Blood Urea Nitrogen 14 Creatinine 1.13 Estimat Glomerular Filtration 64 Rate Random Glucose 110 Calcium Level 8.5 Cardiovascular: Regular Lungs: Clear Abdomen: Other (mildly distended; midline incision c/d/i ) Extremities: No edema A/P Assessment and Plan 71 year old male POD3 exploratory lap; RIGHT hemicolectomy for cecal volulus -Clear liquids---sips only until bowel function returns -KUB shows distention---likely ileus -Start Reglan -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
[2016-05-30] MEDS ORDERED: NORC5TAB PO (15:54)
[2016-05-30] MEDS: ENOXAPARIN SODIUM 40 MG/0.4 ML SYRINGE SQ SCH (19:52)
[2016-05-30] MEDS: cloNIDine HCL 0.1 MG TAB PO PRN (22:48)
[2016-05-30] MEDS: PANTOPRAZOLE SODIUM 40 MG VIAL IV SCH (22:48)
--- NOTE | 2016-05-30 23:18 | HHI.PR ---
Subjective Remarks patient seen today around 11:45 AM. Patient reports abdominal distention and discomfort much worse than yesterday. Denies any chest pain or shortness of breath. Objective Vital Signs Date Time Temp Pulse Resp B/P Pulse Ox O2 Delivery O2 Flow Rate FiO2 05/30/16 20:00 98.6 75 18 166/95 96 05/30/16 19:53 20 05/30/16 17:57 97 21 05/30/16 16:00 98.3 67 16 172/86 97 05/30/16 12:52 97.6 64 18 177/89 97 05/30/16 08:00 97.5 73 18 189/91 94 05/30/16 05:36 19 05/30/16 00:00 97.4 68 20 146/82 95 I/O 05/29/16 05/29/16 05/29/16 05/30/16 05/30/16 05/30/16 07:00 15:00 23:00 07:00 15:00 23:00 Intake Total 674 ml 1440 ml 480 ml 1721 ml 250 ml Output Total 450 ml 1650 ml 1150 ml 850 ml 250 ml Balance 224 ml -210 ml -670 ml 871 ml 0 ml Intake Oral 460 ml 1440 ml 480 ml 800 ml 250 ml IV Total 214 ml 921 ml Output Urine Total 450 ml 1650 ml 1150 ml 850 ml 250 ml # Voids 1 # Bowel Movements 0 0 0 0 1 Result Diagram: 05/29/16 0525 05/30/16 0404 Imaging Last Impressions Abdomen X-Ray 05/30/16 0000 Signed Impressions: Service Date/Time: Monday, May 30, 2016 12:21 - CONCLUSION: Mild diffuse gaseous distention of the stomach, small bowel, and colon possibly representing ileus. The pattern is not suggestive of obstruction. Tee Deng MD Chest X-Ray 05/26/16 1948 Signed Impressions: Service Date/Time: Thursday, May 26, 2016 20:40 - CONCLUSION: No evidence of acute cardiopulmonary disease. Tee Durand MD Abdomen/Pelvis CT 05/26/16 1831 Signed Impressions: Service Date/Time: Thursday, May 26, 2016 19:56 - CONCLUSION: Cecal volvulus with colonic obstruction. Tee Durand MD Objective Remarks GENERAL: patient sitting up in bed. Appears uncomfortable. Alert and oriented. SKIN: Warm and dry. HEAD: Normocephalic. EYES: No scleral icterus. No injection or drainage. NECK: Supple, trachea midline. No JVD. CARDIOVASCULAR: Regular rate and rhythm without murmurs, gallops, or rubs. RESPIRATORY: Breath sounds equal bilaterally. No accessory muscle use. GASTROINTESTINAL: abdominal dressing intact. Abdomen nontender, nondistended.no change. MUSCULOSKELETAL: No cyanosis, or edema. BACK: Nontender without obvious deformity. No CVA tenderness. A/P Assessment and Plan //Postop bowel resection for volvulus performed 05/27 Postsurgical management as per history of service Pain management as per surgical service -poor by mouth intake. Have added D5 half-normal saline maintenance fluids. 05/30 Await return of bowel function. KUB with possible ileus. Primary service has ordered Reglan. Hypertension. Chronic. Not on medication. Blood pressure likely exacerbated by pain. Enalapril IV when necessary. -05/29. blood pressure elevated.Will add low-dose lisinopril. Continue to monitor. 05/30. Blood pressure again elevated. Patient not tolerating by mouth. Lisinopril 5 mg recommended to continue at discharge. GERD. Chronic. Continue PPI Elevated troponin 0.09. No chest pain. Likely patient has some left ventricular hypertrophy from working out for years, as well as high blood pressure. -Cardiology consulted. Will need outpatient follow-up with cardiology Leukocytosis. Mild. Resolved. Likely secondary to stress. No signs of infection. Prophylaxis. As per surgical service. Discharge Planning we will continue to follow Ovi Goldberg MD May 30, 2016 23:17
[2016-05-31] VITALS (8 sets, daily range): BP systolic 146–188; BP diastolic 78–93; PULSE 64–71; RESP 16–19; TEMP 96.2–98.7; O2SAT 95–97
[2016-05-31 05:01] LABS: AUTOMATED NEUTROPHIL # 5.4 TH/MM3 (1.8-7.7); BASOPHIL % 0.3 % (0.0-2.0); EOSINOPHIL # 0.3 TH/MM3 (0-0.4); EOSINOPHIL % 4.8 % (0.0-4.0); HEMO FLAGS DIFF FINAL; LYMPH % 13.4 % (9.0-44.0); MEAN CELL VOLUME 84.4 FL (80.0-100.0); MEAN CORPUSCULAR HEMOGLOBIN 29.6 PG (27.0-34.0); MEAN CORPUSCULAR HGB CONC 35.1 % (32.0-36.0); MONO % 6.9 % (0.0-8.0); NEUT % 74.6 % (16.0-70.0); PLATELET COUNT 168 TH/MM3 (150-450); RED BLOOD COUNT 4.26 MIL/MM3 (4.50-5.90); RED CELL DISTRIBUTION WIDTH 13.4 % (11.6-17.2); WHITE BLOOD COUNT 7.2 TH/MM3 (4.0-11.0)
[2016-05-31] MEDS: PCA - TOTAL MG MORPHINE DELIVERED PER SHIFT SCH ×3 (05:20→21:14)
[2016-05-31] MEDS: METOCLOPRAMIDE HCL 10 MG/2 ML VIAL IV PUSH SCH ×3 (05:20→21:14)
[2016-05-31] MEDS: INSULIN NovoLIN REGULAR SUPPLEMENTAL SCALE SQ SCH ×4 (05:21→21:00)
[2016-05-31 05:25] LABS: ANION GAP 9 MEQ/L (5-15); AST (GOT) 36 U/L (15-37); BICARBONATE 27.5 MEQ/L (21.0-32.0); BLOOD UREA NITROGEN 15 MG/DL (7-18); CHLORIDE 103 MEQ/L (98-107); GLOMERULAR FILTRATION RATE 62 ML/MIN (>89); MAGNESIUM 2.2 MG/DL (1.5-2.5); POTASSIUM 3.8 MEQ/L (3.5-5.1); SODIUM (NA) 139 MEQ/L (136-145)
[2016-05-31 05:28] LABS: ALKALINE PHOSPHATASE 51 U/L (45-117); ALT (GPT) 56 U/L (12-78); TOTAL BILIRUBIN ADULT 0.6 MG/DL (0.2-1.0)
[2016-05-31] MEDS: SODIUM CHLORIDE 0.9% FLUSH 5 ML FLUSH IVF SCH ×2 (08:12→21:00)
[2016-05-31] MEDS: ALVIMOPAN 12 MG CAPSULE PO SCH ×2 (08:12→21:14)
[2016-05-31] MEDS: LISINOPRIL 5 MG TAB PO SCH (08:12)
[2016-05-31] MEDS: D5-1/2 NS + KCL 20 MEQ INJ 1,000 ML IV SCH (08:12)
--- NOTE | 2016-05-31 08:56 | HHI.PR ---
Subjective Remarks Patient seen and examined this morning. BP elevated. Has a dry cough that developed over the last two days, makes his abdominal pain worse. He states he feels better than yesterday. Patient passing gas and liquid fecal matter, diet was advanced by surgery to clear liquid. (Daylin Travis MD R3) Objective Vital Signs Date Time Temp Pulse Resp B/P Pulse Ox O2 Delivery O2 Flow Rate FiO2 05/31/16 05:20 18 05/31/16 01:00 146/78 05/31/16 00:00 97.3 70 18 188/93 95 05/30/16 23:40 182/48 05/30/16 20:00 98.6 75 18 166/95 96 05/30/16 19:53 20 05/30/16 17:57 97 21 05/30/16 16:00 98.3 67 16 172/86 97 05/30/16 12:52 97.6 64 18 177/89 97 I/O 05/30/16 05/30/16 05/30/16 05/31/16 05/31/16 05/31/16 07:00 15:00 23:00 07:00 15:00 23:00 Intake Total 480 ml 1721 ml 250 ml 240 ml 1706 ml Output Total 1150 ml 850 ml 250 ml 500 ml Balance -670 ml 871 ml 0 ml -260 ml 1706 ml Intake Oral 480 ml 800 ml 250 ml 240 ml IV Total 921 ml 1706 ml Output Urine Total 1150 ml 850 ml 250 ml 500 ml # Voids 1 # Bowel Movements 0 0 1 0 (Daylin Travis MD R3) Result Diagram: 05/31/16 0357 05/31/16 0357 Imaging Last Impressions Abdomen X-Ray 05/30/16 0000 Signed Impressions: Service Date/Time: Monday, May 30, 2016 12:21 - CONCLUSION: Mild diffuse gaseous distention of the stomach, small bowel, and colon possibly representing ileus. The pattern is not suggestive of obstruction. Tee Deng MD Chest X-Ray 05/26/16 194 Signed Impressions: Service Date/Time: Thursday, May 26, 2016 20:40 - CONCLUSION: No evidence of acute cardiopulmonary disease. Tee Durand MD Abdomen/Pelvis CT 05/26/16 1831 Signed Impressions: Service Date/Time: Thursday, May 26, 2016 19:56 - CONCLUSION: Cecal volvulus with colonic obstruction. Tee Durand MD Other Results GENERAL: patient sitting up in chair. coughing. SKIN: Warm and dry. HEAD: Normocephalic. EYES: No scleral icterus. No injection or drainage. NECK: Supple, trachea midline. No JVD. CARDIOVASCULAR: Regular rate and rhythm without murmurs, gallops, or rubs. RESPIRATORY: Breath sounds equal bilaterally. No accessory muscle use. GASTROINTESTINAL: abdominal dressing intact, clean and dry. Abdomen nontender, nondistended.no change. MUSCULOSKELETAL: No cyanosis, or edema. BACK: Nontender without obvious deformity. No CVA tenderness. 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 Hospitals consulted for medical management. 1. 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 Management per primary, surgery. 2. Hypertension: BP uncontrolled. Has cough that he states developed 2 days ago, could be related to ABEL-I. Will stop ACEI and start HCTZ 12.5 mg daily 3. GERD: Protonix 40 mg IV daily 4. Elevated troponin x2, cards was consulted. Will follow up as an outpatient. FEN: Fluids: NS w/ D5 & KCL per surgery Electrolytes: Currently within normal limits Nutrition: Liquid diet, advance per surgery DVT prophylaxis: Lovenox Case discussed with patients nurse. Discharge Planning D/C pending surgical clearance. (Daylin Travis MD R3) Daylin Travis MD R3 May 31, 2016 08:56 Judy Gomez MD May 31, 2016 15:53
--- NOTE | 2016-05-31 09:36 | HHI.PR ---
Subjective Subjective Notes +BM and flatus Objective Vitals/I&O Vital Signs Date Time Temp Pulse Resp B/P Pulse Ox O2 Delivery O2 Flow Rate FiO2 05/31/16 08:00 96.2 66 18 163/85 95 05/30/16 17:57 21 05/27/16 15:56 Nasal Cannula 2.00 Labs Laboratory Tests Test 05/31/16 03:57 White Blood Count 7.2 Red Blood Count 4.26 Hemoglobin 12.6 Hematocrit 36.0 Mean Corpuscular Volume 84.4 Mean Corpuscular Hemoglobin 29.6 Mean Corpuscular Hemoglobin 35.1 Concent Red Cell Distribution Width 13.4 Platelet Count 168 Mean Platelet Volume 7.8 Neutrophils (%) (Auto) 74.6 Lymphocytes (%) (Auto) 13.4 Monocytes (%) (Auto) 6.9 Eosinophils (%) (Auto) 4.8 Basophils (%) (Auto) 0.3 Neutrophils # (Auto) 5.4 Lymphocytes # (Auto) 1.0 Monocytes # (Auto) 0.5 Eosinophils # (Auto) 0.3 Basophils # (Auto) 0.0 CBC Comment DIFF FINAL Differential Comment Sodium Level 139 Potassium Level 3.8 Chloride Level 103 Carbon Dioxide Level 27.5 Anion Gap 9 Blood Urea Nitrogen 15 Creatinine 1.16 Estimat Glomerular Filtration 62 Rate Random Glucose 116 Calcium Level 8.6 Phosphorus Level 3.3 Magnesium Level 2.2 Total Bilirubin 0.6 Aspartate Amino Transf 36 (AST/SGOT) Alanine Aminotransferase 56 (ALT/SGPT) Alkaline Phosphatase 51 Total Protein 6.0 Albumin 2.8 Cardiovascular: Regular Lungs: Clear Abdomen: Non-distended, Non-tender, Post-op tenderness Extremities: No edema, Perfused A/P Assessment and Plan 71yo male with cecal volvulus, s/p right hemicolectomy, stable. - advance diet slowly - decrease IVF - cont German Lombardo MD May 31, 2016 09:36
[2016-05-31] MEDS ORDERED: BENZONATATE 100 MG CAP PO PRN (10:00)
[2016-05-31] MEDS ORDERED: HYDROCHLOROTHIAZIDE 12.5 MG CAP PO SCH (10:00)
[2016-05-31] MEDS ORDERED: LISINOPRIL 20 MG TAB PO SCH (10:00)
[2016-05-31] MEDS: ENOXAPARIN SODIUM 40 MG/0.4 ML SYRINGE SQ SCH (21:14)
[2016-06-01 03:58] VITALS: BP 168/83; PULSE 67; RESP 18; TEMP 98.6; O2SAT 95
[2016-06-01] MEDS: METOCLOPRAMIDE HCL 10 MG/2 ML VIAL IV PUSH SCH ×3 (05:46→21:11)
[2016-06-01] MEDS: PCA - TOTAL MG MORPHINE DELIVERED PER SHIFT SCH ×2 (05:46→14:00)
[2016-06-01] MEDS: INSULIN NovoLIN REGULAR SUPPLEMENTAL SCALE SQ SCH ×4 (05:49→21:00)
--- NOTE | 2016-06-01 07:15 | HHI.PR ---
Subjective Remarks Patient seen and examined this morning. BP continues to be elevated, patient states its usually high and his doctors have told him he should be on medication but he refuses. Overall feels well. Sitting comfortably. He had multiple liquid stools yesterday with a little bit of formed stools. His pain is well controlled. Still intermittent cough. (Daylin Travis MD R3) Objective Vital Signs Date Time Temp Pulse Resp B/P Pulse Ox O2 Delivery O2 Flow Rate FiO2 06/01/16 05:46 18 06/01/16 03:58 98.6 67 18 168/83 95 05/31/16 23:53 97.7 67 19 172/90 96 05/31/16 21:14 18 05/31/16 20:00 98.7 71 18 172/83 96 05/31/16 16:00 97.4 64 16 165/92 97 05/31/16 14:00 16 05/31/16 12:00 96.5 64 16 175/86 95 05/31/16 09:55 97 21 05/31/16 08:00 96.2 66 18 163/85 95 I/O 05/31/16 05/31/16 05/31/16 06/01/16 06/01/16 06/01/16 07:00 15:00 23:00 07:00 15:00 23:00 Intake Total 240 ml 3181 ml 656 ml 541 ml Output Total 500 ml 800 ml 800 ml 400 ml Balance -260 ml 2381 ml -144 ml 141 ml Intake Oral 240 ml 1200 ml 240 ml 240 ml IV Total 1981 ml 416 ml 301 ml Output Urine Total 500 ml 800 ml 800 ml 400 ml # Bowel Movements 0 0 2 (Daylin Travis MD R3) Result Diagram: 05/31/16 0357 05/31/16 0357 Imaging Last Impressions Abdomen X-Ray 05/30/16 0000 Signed Impressions: Service Date/Time: Monday, May 30, 2016 12:21 - CONCLUSION: Mild diffuse gaseous distention of the stomach, small bowel, and colon possibly representing ileus. The pattern is not suggestive of obstruction. Tee Deng MD Chest X-Ray 05/26/16 1948 Signed Impressions: Service Date/Time: Thursday, May 26, 2016 20:40 - CONCLUSION: No evidence of acute cardiopulmonary disease. Tee Durand MD Abdomen/Pelvis CT 05/26/16 1831 Signed Impressions: Service Date/Time: Thursday, May 26, 2016 19:56 - CONCLUSION: Cecal volvulus with colonic obstruction. Tee Durand MD Other Results GENERAL: patient sitting laying in bed, comfortable. SKIN: Warm and dry. HEAD: Normocephalic. EYES: No scleral icterus. No injection or drainage. NECK: Supple, trachea midline. No JVD. CARDIOVASCULAR: Regular rate and rhythm without murmurs, gallops, or rubs. RESPIRATORY: Breath sounds equal bilaterally. No accessory muscle use. GASTROINTESTINAL: abdominal dressing intact, clean and dry. Abdomen nontender, nondistended.no change. MUSCULOSKELETAL: No cyanosis, or edema. BACK: Nontender without obvious deformity. No CVA tenderness. 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 Hospitals consulted for medical management. 1. 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 Management per primary, surgery. 2. Hypertension: BP uncontrolled. Has cough that he states developed 2 days ago, could be related to ABEL-I. ACEI stopped 05/31 and start HCTZ 12.5 mg daily. BP remains elevated, will increase HCTZ to 25 mg daily, 06/01. 3. GERD: Protonix 40 mg IV daily 4. Elevated troponin x2, cards was consulted. Will follow up as an outpatient. FEN: Fluids: NS w/ D5 & KCL per surgery Electrolytes: Currently within normal limits Nutrition: Liquid diet, advance per surgery DVT prophylaxis: Lovenox Case discussed with patients nurse. Discharge Planning D/C pending surgical clearance. (Daylin Travis MD R3) Daylin Travis MD R3 Jun 01, 2016 07:15 Judy Gomez MD Jun 01, 2016 15:55
[2016-06-01 08:00] VITALS: BP 152/84; PULSE 72; RESP 18; TEMP 96.4; O2SAT 96
[2016-06-01] MEDS: PANTOPRAZOLE SOD 40 MG DELAYED RELEASE TAB PO SCH (08:10)
[2016-06-01] MEDS: HYDROCHLOROTHIAZIDE 25 MG TAB PO SCH (08:10)
[2016-06-01] MEDS: SODIUM CHLORIDE 0.9% FLUSH 5 ML FLUSH IVF SCH (08:10)
[2016-06-01] MEDS: ALVIMOPAN 12 MG CAPSULE PO SCH ×2 (08:10→21:11)
[2016-06-01] MEDS: D5-1/2 NS + KCL 20 MEQ INJ 1,000 ML IV SCH (08:11)
[2016-06-01 12:00] VITALS: BP 146/81; PULSE 78; RESP 18; TEMP 97.9; O2SAT 99
--- NOTE | 2016-06-01 15:22 | HHI.PR ---
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
[2016-06-01] MEDS ORDERED: ACETAMINOPHEN/HYDROcodone 325 MG/5 MG TAB PO PRN ×2 (15:30)
[2016-06-01 16:00] VITALS: BP 144/83; PULSE 81; RESP 20; TEMP 97.2; O2SAT 98
[2016-06-01 20:00] VITALS: BP 126/87; PULSE 90; RESP 22; TEMP 97.7; O2SAT 96
[2016-06-02] VITALS: BP 150/100; PULSE 81; RESP 20; TEMP 97; O2SAT 94
[2016-06-02] MEDS: cloNIDine HCL 0.1 MG TAB PO PRN (01:00)
[2016-06-02] MEDS: METOCLOPRAMIDE HCL 10 MG/2 ML VIAL IV PUSH SCH (05:31)
[2016-06-02] MEDS: INSULIN NovoLIN REGULAR SUPPLEMENTAL SCALE SQ SCH (05:31)
[2016-06-02 05:46] VITALS: BP 133/78; PULSE 69; RESP 20; TEMP 97.2; O2SAT 97
[2016-06-02 08:00] VITALS: BP 134/70; PULSE 68; RESP 20; TEMP 96.2; O2SAT 93
[2016-06-02] MEDS: ALVIMOPAN 12 MG CAPSULE PO SCH (08:38)
[2016-06-02] MEDS: PANTOPRAZOLE SOD 40 MG DELAYED RELEASE TAB PO SCH (08:38)
[2016-06-02] MEDS: HYDROCHLOROTHIAZIDE 25 MG TAB PO SCH (08:38)
[2016-06-02] MEDS ORDERED: HYDR25TA5 PO (09:25)
--- NOTE | 2016-06-02 09:25 | HHI.PR ---
Subjective Remarks sitting on the chair with no distress. no abdominal pain, nausea, vomiting. no chest pain. Objective Vitals Vital Signs Date Time Temp Pulse Resp B/P Pulse Ox O2 Delivery O2 Flow Rate FiO2 06/02/16 08:00 96.2 68 20 134/70 93 06/02/16 05:46 97.2 69 20 133/78 97 06/02/16 00:00 97.0 81 20 150/100 94 06/01/16 20:00 97.7 90 22 126/87 96 06/01/16 16:00 97.2 81 20 144/83 98 06/01/16 12:00 97.9 78 18 146/81 99 I/O 06/01/16 06/01/16 06/01/16 06/02/16 06/02/16 06/02/16 07:00 15:00 23:00 07:00 15:00 23:00 Intake Total 541 ml 1525 ml 240 ml 240 ml Output Total 400 ml 1000 ml Balance 141 ml 525 ml 240 ml 240 ml Intake Oral 240 ml 1200 ml 240 ml 240 ml IV Total 301 ml 325 ml 0 ml 0 ml Output Urine Total 400 ml 1000 ml # Voids 1 2 # Bowel Movements 1 1 2 Result Diagram: 05/31/16 0357 05/31/16 0357 Imaging Last Impressions Abdomen X-Ray 05/30/16 0000 Signed Impressions: Service Date/Time: Monday, May 30, 2016 12:21 - CONCLUSION: Mild diffuse gaseous distention of the stomach, small bowel, and colon possibly representing ileus. The pattern is not suggestive of obstruction. Tee Deng MD Chest X-Ray 05/26/16 1948 Signed Impressions: Service Date/Time: Thursday, May 26, 2016 20:40 - CONCLUSION: No evidence of acute cardiopulmonary disease. Tee Durand MD Abdomen/Pelvis CT 05/26/16 1831 Signed Impressions: Service Date/Time: Thursday, May 26, 2016 19:56 - CONCLUSION: Cecal volvulus with colonic obstruction. Tee Durand MD Objective Remarks GENERAL: This is a well-nourished, well-developed patient, in no apparent distress. CARDIOVASCULAR: Regular rate and regular rhythm without murmurs, gallops, or rubs. RESPIRATORY: Clear to auscultation. Breath sounds equal bilaterally. No wheezes , rales, or rhonchi. GASTROINTESTINAL: Abdomen soft, non-tender, nondistended. Normal, active bowel sounds MUSCULOSKELETAL: Extremities without clubbing, cyanosis, or edema. NEURO: Alert & Oriented x4 to person, place, time, situation. Moves all ext x4 Medications and IVs Current Medications Morphine Sulfate (Morphine Inj) 4 mg ONCE ONCE IV PUSH Last administered on 19:50; Start 05/26/16 at 18:45; Stop 05/26/16 at 18:46; Status DC Ondansetron HCl 4 mg 4 mg ONCE ONCE IVP Last administered on 05/26/16 19:50; Start 05/26/16 at 18:45; Stop 05/26/16 at 18:46; Status DC Sodium Chloride 1,000 ml @ 1,000 mls/hr Q1H IV Last administered on 05/26/16 19:49; Start 05/26/16 at 18:42; Stop 05/26/16 at 19:41; Status DC Sodium Chloride (NS 1000 ml Inj) 1,000 ml @ 999 mls/hr BOLUS ONCE IV Last administered on 05/26/16 19:50; Start 05/26/16 at 19:00; Stop 05/26/16 at 20:00; Status DC Iohexol (Omnipaque 350 Inj) 71 ml STK-MED ONCE IV Last administered on 20:08; Start 05/26/16 at 20:08; Stop 05/26/16 at 20:09; Status DC Bupivacaine HCl/ Epinephrine Bitart (Sensorcaine-Epinephrine Pf 0.5% Inj) 30 ml STK-MED ONCE .ROUTE ; Start 05/26/16 at 21:58; Stop 05/26/16 at 21:59; Status DC Midazolam HCl (Versed Inj) 2 mg STK-MED ONCE .ROUTE ; Start 05/26/16 at 22:33; Stop 05/26/16 at 22:34; Status DC Sugammadex Sodium 200 mg 200 mg STK-MED ONCE IV PUSH ; Start 05/26/16 at 22:41; Stop 05/26/16 at 22:42; Status DC Metronidazole (Flagyl 500 Mg Inj) 100 ml @ As Directed STK-MED ONCE IV Last administered on 05/26/16 22:49; Start 05/26/16 at 22:44; Stop 05/26/16 at 22:45; Status DC Acetaminophen (Ofirmev Inj) 1,000 mg STK-MED ONCE IV ; Start 05/26/16 at 22:52; Stop 05/26/16 at 22:53; Status DC Bupivacaine HCl/ Epinephrine Bitart 30 ml 30 ml STK-MED ONCE INFIL Last administered on 05/26/16 22:49; Start 05/26/16 at 22:49; Stop 05/26/16 at 23:02; Status DC Potassium Chloride/Dextrose/ Sod Cl (D5-NS + KCl 20 Meq Inj) 1,000 ml @ 125 mls /hr Q8H IV Last administered on 05/27/16 01:00; Start 05/27/16 at 00:11; Stop at 12:59; Status DC IV Flush (NS Flush) 2 ml UNSCH PRN IVF FLUSH AFTER USING IV ACCESS; Start at 00:15; Stop 06/01/16 at 15:18; Status DC IV Flush (NS Flush) 2 ml BID IVF Last administered on 05/30/16 19:54; Start at 00:15; Stop 06/01/16 at 15:18; Status DC Ondansetron HCl (Zofran Inj) 4 mg Q6H PRN IV NAUSEA OR VOMITING Last administered on 05/30/16 09:39; Start 05/27/16 at 00:15; Stop 06/01/16 at 15:18 ; Status DC Pantoprazole Sodium (Protonix Inj) 40 mg Q24H IV Last administered on 22:48; Start 05/27/16 at 00:15; Stop 05/31/16 at 09:27; Status DC Diphenhydramine HCl (Benadryl Inj) 25 mg Q6H PRN IV ITCHING; Start 05/27/16 at 00:15; Stop 06/01/16 at 15:18; Status DC Benzocaine 1 spray 1 spray UNSCH X1 PRN MT SEE LABEL COMMENTS; Start 05/27/16 at 00:15; Stop 05/29/16 at 00:14; Status DC Metronidazole (Flagyl 500 Mg Inj) 100 ml @ 200 mls/hr Q8H IV ; Start 05/27/16 at 03:00; Stop 05/27/16 at 03:00; Status DC Miscellaneous Information (Post-op Orders (for Pharmacy)) STAT ONCE XX ; Start 05/27/16 at 00:15; Stop 05/27/16 at 00:30; Status DC Acetaminophen (Ofirmev Inj) 1,000 mg Q6H IV Last administered on 05/27/16 21:53 ; Start 05/27/16 at 05:00; Stop 05/27/16 at 23:01; Status DC Naloxone HCl (Narcan Inj) 0.4 mg UNSCH PRN IV SEE LABEL COMMENTS; Start at 00:15; Stop 06/01/16 at 15:18; Status DC Enoxaparin Sodium (Lovenox Inj) 40 mg Q24H SQ Last administered on 05/31/16 21 :14; Start 05/27/16 at 21:00; Stop 06/01/16 at 15:18; Status DC Naloxone HCl (Narcan Inj) 0.4 mg UNSCH PRN IV RESPIRATORY RATE LESS THAN 10; Start 05/27/16 at 00:15; Stop 06/01/16 at 15:18; Status DC Morphine Sulfate (Morphine 1 Mg/ ml FORGE TENDER) 30 mg UNSCH IV Last administered on 06:38; Start 05/27/16 at 00:15; Stop 06/01/16 at 15:18; Status DC FORGE TENDER Dosage Infused (Pha) 1 Q8HR .XX Last administered on 06/01/16 14:00; Start 05/27/16 at 00:15; Stop 06/01/16 at 15:18; Status DC Insulin Human Regular (NovoLIN R SUPPLEMENTAL SCALE) 1 ACHS SLIDING SCALE SQ Last administered on 05/30/16 21:58; Start 05/27/16 at 07:00 Dextrose (D50w (Vial) Inj) 25 ml UNSCH PRN IV PUSH HYPOGLYCEMIA-SEE COMMENTS; Start 05/27/16 at 00:15 Glucagon (Glucagon Inj) 1 mg UNSCH PRN OTHER HYPOGLYCEMIA-SEE COMMENTS; Start 05/27/16 at 00:15 Alvimopan (Entereg) 12 mg ONCE ONCE PO Last administered on 05/27/16 01:35; Start 05/27/16 at 00:15; Stop 05/27/16 at 00:22; Status DC Alvimopan (Entereg) 12 mg Q12HR PO Last administered on 06/02/16 08:38; Start 05/27/16 at 09:00; Stop 06/02/16 at 21:01 Enalaprilat (Vasotec Inj) 1.25 mg STK-MED ONCE .ROUTE Last administered on 05/27 00:30; Start 05/27/16 at 00:30; Stop 05/27/16 at 00:31; Status DC Meperidine HCl (Demerol Inj) 25 mg STK-MED ONCE .ROUTE Last administered on 05/27 00:31; Start 05/27/16 at 00:31; Stop 05/27/16 at 00:32; Status DC Morphine Sulfate (*morphine INJ PERIprocedure ONLY) 8 mg STK-MED ONCE .ROUTE Last administered on 05/27/16 00:40; Start 05/27/16 at 00:40; Stop 05/27/16 at 00: 41; Status DC Fentanyl Citrate (fentaNYL INJ) 250 mcg STK-MED ONCE .ROUTE ; Start 05/27/16 at 00:54; Stop 05/27/16 at 00:55; Status DC Enalaprilat 1.25 mg 1.25 mg STK-MED ONCE .ROUTE Last administered on 05/27/16 01:01; Start 05/27/16 at 01:01; Stop 05/27/16 at 01:02; Status DC Metronidazole (Flagyl 500 Mg Inj) 100 ml @ 200 mls/hr Q8H IV Last administered on 05/27/16 23:19; Start 05/27/16 at 07:00; Stop 05/27/16 at 23:29; Status DC Insulin Human Regular (NovoLIN R INJ) 10 units STK-MED ONCE .ROUTE Last administered on 05/27/16 01:32; Start 05/27/16 at 01:32; Stop 05/27/16 at 01:33; Status DC Propofol (Diprivan 200 Mg/20 ml Inj) 200 mg STK-MED ONCE IV ; Start 05/26/16 at 12:00; Stop 05/27/16 at 10:32; Status DC Ondansetron HCl 4 mg 4 mg STK-MED ONCE IV PUSH ; Start 05/26/16 at 12:00; Stop at 10:32; Status DC Lactated Ringer's 1,000 ml @ As Directed STK-MED ONCE IV ; Start 05/26/16 at 12: 00; Stop 05/27/16 at 10:32; Status DC Sodium Chloride 1,000 ml @ As Directed STK-MED ONCE IV ; Start 05/26/16 at 12:00 ; Stop 05/27/16 at 10:33; Status DC Sodium Chloride (NS 250 ml Inj) 250 ml @ As Directed STK-MED ONCE IV ; Start at 12:00; Stop 05/27/16 at 10:33; Status DC Enalaprilat 1.25 mg 1.25 mg Q6H PRN IV PUSH SBP> OR = 180, DBP> OR = 100 Last administered on 05/31/16 00:01; Start 05/27/16 at 11:15 Sodium Chloride 1,000 ml @ 125 mls/hr Q8H IV ; Start 05/27/16 at 13:00; Status Cancel Dextrose/Sodium Chloride (D5W-NS 1000 ml Inj) 1,000 ml @ 125 mls/hr Q8H IV Last administered on 05/27/16 13:29; Start 05/27/16 at 13:00; Stop 05/27/16 at 22: 59; Status DC Clonidine 0.1 mg 0.1 mg Q6H PRN PO SBP> OR = 180, DBP> OR = 100 Last administered on 06/02/16 01:00; Start 05/27/16 at 23:00 Sodium Chloride (NS 1000 ml Inj) 1,000 ml @ 50 mls/hr Q20H IV Last administered on 05/29/16 08:13; Start 05/28/16 at 12:38; Stop 05/29/16 at 09:14; Status DC Lisinopril (Prinivil) 5 mg DAILY PO Last administered on 05/31/16 08:12; Start 05/30/16 at 09:00; Stop 05/31/16 at 08:53; Status DC Lisinopril 5 mg 5 mg ONCE ONCE PO Last administered on 05/29/16 09:46; Start 05/29/16 at 09:15; Stop 05/29/16 at 09:18; Status DC Potassium Chloride/Dextrose/ Sod Cl (D5-1/2 NS + KCl 20 Meq Inj) 1,000 ml @ 40 mls/hr Q24H IV Last administered on 06/01/16 08:11; Start 05/29/16 at 22:45; Stop 06/01/16 at 15:18; Status DC Metoclopramide HCl (Reglan Inj) 10 mg Q8HR IV PUSH Last administered on 05:31; Start 05/30/16 at 14:00 Lisinopril (Prinivil) 20 mg DAILY PO ; Start 05/31/16 at 10:00; Stop 05/31/16 at 10:00; Status DC Pantoprazole Sodium (Protonix) 40 mg DAILY PO Last administered on 06/02/16 08 :38; Start 06/01/16 at 09:00 Benzonatate (Tessalon) 200 mg TID PRN PO cough Last administered on 05/31/16 17:48; Start 05/31/16 at 10:00 Hydrochlorothiazide (Microzide) 12.5 mg DAILY PO Last administered on 11:30; Start 05/31/16 at 10:00; Stop 06/01/16 at 07:15; Status DC Hydrochlorothiazide (Hydrodiuril) 25 mg DAILY PO Last administered on 08:38; Start 06/01/16 at 09:00 Acetaminophen/ Hydrocodone Bitart ([place] 5-325 Mg) 1 tab Q4H PRN PO pain 1-5; Start 06/01/16 at 15:30 Acetaminophen/ Hydrocodone Bitart ([place] 5-325 Mg) 2 tab Q4H PRN PO pain 6-10 ; Start 06/01/16 at 15:30 A/P Assessment and Plan A/P 1. 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 Management per primary, surgery. 2. Hypertension: BP uncontrolled. Has cough that he states developed 2 days ago, could be related to ABEL-I. ACEI stopped 05/31 and started HCTZ . 3. GERD: Protonix 4. Elevated troponin x2, cards was consulted. Will follow up as an outpatient. Discharge Planning dc planning per surgery. f/u; pcp and cardiology upon discharge. Georgi Addison MD Jun 02, 2016 09:24
--- NOTE | 2016-06-02 13:41 | HHI.DS ---
Discharge Summary Admission Date May 26, 2016 at 22:01 Discharge Date: Jun 02, 2016 Admitting Diagnosis syncope/cecal volvulus Brief History 71 year old male with cecal volvulus, s/p right hemicolectomy. CBC/BMP: 05/31/16 0357 05/31/16 0357 Significant Findings Laboratory Tests Test 05/31/16 03:57 Red Blood Count 4.26 MIL/MM3 (4.50-5.90) Hemoglobin 12.6 GM/DL (13.0-17.0) Hematocrit 36.0 % (39.0-51.0) Neutrophils (%) (Auto) 74.6 % (16.0-70.0) Eosinophils (%) (Auto) 4.8 % (0.0-4.0) Estimat Glomerular Filtration 62 ML/MIN (>89) Rate Random Glucose 116 MG/DL (74-106) Total Protein 6.0 GM/DL (6.4-8.2) Albumin 2.8 GM/DL (3.4-5.0) PE at Discharge Ambulating in room Cardio: RRR Resp: CTAB Abd: Wound clean and dry; rony intact without erythema Hospital Course This is a 71 year old male with cecal volvulus, s/p right hemicolectomy. Tolerating regular diet. Pain controlled using oral pain medications. He is able to ambulate independently. He will follow up with Dr. Rm in the office for staple removal next Thursday. Pt Condition on Discharge: Good Discharge Disposition: Discharge Home Discharge Instructions DIET: Follow Instructions for: As Tolerated, No Restrictions Activities you can perform: See Additionl Instruction Other Activity Instructions: Okay to shower; pat incision dry Xin Blount Jun 02, 2016 13:41
== END 2016-06-02 11:05 | disposition home or self-care (01) | DRG 330 ==
LOC: NEPC 14:07 → NEDA 22:01 → N07B 05-27 02:00
PROVIDERS: ADMIT Surgery; ATTEND Surgery
PROC: 0DTF0ZZ Resection of Right Large Intestine, Open Approach (ICD-10-PCS; principal; 2016-05-27)
DX: K56.2 Volvulus (principal); K55.9 Vascular disorder of intestine, unspecified; I11.9 Hypertensive heart disease without heart failure; R55 Syncope and collapse; K21.9 Gastro-esophageal reflux disease without esophagitis; I49.1 Atrial premature depolarization; M06.9 Rheumatoid arthritis, unspecified; R05 Cough; R74.8 Abnormal levels of other serum enzymes; Z88.1 Allergy status to other antibiotic agents; Z88.0 Allergy status to penicillin
CPT/HCPCS: 71010; 74000; 74177; 80048; 80053; 81001; 82550; 82552; 82948; 83605; 83690; 83735; 84100; 84484; 85025; 87804; 88307; 93005; 94150; 96374; 96375; C9113; J0131; J1650; J1815; J2175; J2250; J2270; J2405; J2765; J3010; J3480; J7030; J7042; J7050; J7120; Q9967